=== PATIENT | female | born 1945 | race Caucasian/White ===

== ENCOUNTER 2017-02-02 08:10 | Emergency (ER) | payer MEDICARE ==
[2017-02-02 08:22] VITALS: RESP 16
[2017-02-02] MEDS ORDERED: ACETAMINOPHEN IV (For NPO) 1,000 MG in SALINE 100 100ML.BAG IVPB STA (08:46)
[2017-02-02] MEDS ORDERED: SODIUM CHLORIDE 0.9% 500 ML IV STA (08:46)
--- NOTE | 2017-02-02 08:49 | ED ---
General Adult HPI - General Chief complaint: Abdominal Pain Stated complaint: ABDOMINAL PAIN Time Seen by Provider: 02/02/17 08:38 Source: patient, RN notes reviewed Mode of arrival: ambulatory Limitations: no limitations - History of Present Illness Initial comments: Patient 71-year-old female who presents emergency room today with chief complaint of lower abdominal cramping. She does admit that a urinary tract infection that she was diagnosed with 2 days ago in the family doctor's office. States she began feeling better 2 days ago after starting antibiotics. States that last night she was having some cramping in lower abdomen that she didn't when the symptoms started. Does admit that it feels similar to urinary tract infections that she's had in the past. States she is on antibiotics of Bactrim but did not take it this morning. Patient denies any other complaints or symptoms at this time. Patient denies any recent fever, chills, shortness of breath, chest pain, back pain, nausea or vomiting, numbness or tingling, dysuria or hematuria, constipation or diarrhea, headaches or visual changes, or any other complaints. - Related Data Home Medications Medication Instructions Recorded Confirmed Aspirin EC [Ecotrin Low Dose] 81 mg PO DAILY 02/02/17 02/02/17 Atorvastatin [Lipitor] 80 mg PO HS 02/02/17 02/02/17 Cholecalciferol [Vitamin D3] 1,000 unit PO DAILY 02/02/17 02/02/17 Cyanocobalamin (Vitamin B-12) 1,000 mcg PO DAILY 02/02/17 02/02/17 [Vitamin B-12] FLUoxetine HCL [PROzac] 20 mg PO DAILY 02/02/17 02/02/17 Folic Acid 1 mg PO DAILY 02/02/17 02/02/17 Losartan Potassium [Cozaar] 50 mg PO DAILY 02/02/17 02/02/17 Metoprolol Tartrate [Lopressor] 25 mg PO DAILY 02/02/17 02/02/17 Multivitamins, Thera [Multivitamin] 1 tab PO DAILY 02/02/17 02/02/17 [place]-3 Fatty Acids/Fish Oil [Fish 2 cap PO DAILY 02/02/17 02/02/17 Oil 1,000 mg Softgel] Sulfamethox-Tmp 800-160Mg [Bactrim 1 tab PO Q12HR 02/02/17 02/02/17 DS 800-160 mg] Previous Rx's Medication Instructions Recorded Nitrofurantoin Monohyd/M-Cryst 100 mg PO Q12HR #14 cap 02/02/17 [Macrobid] Allergies Allergy/AdvReac Type Severity Reaction Status Date / Time hydroxychloroquine sulfate AdvReac Itching Verified 02/02/17 08:36 [From Plaquenil] Review of Systems ROS Statement: Those systems with pertinent positive or pertinent negative responses have been documented in the HPI. ROS Other: All systems not noted in ROS Statement are negative. Past Medical History Past Medical History: Hyperlipidemia, Hypertension, Rheumatoid Arthritis (RA) History of Any Multi-Drug Resistant Organisms: None Reported Past Surgical History: Section Additional Past Surgical History / Comment(s): cataract eye surgery Past Psychological History: No Psychological Hx Reported Smoking Status: Never smoker Past Alcohol Use History: None Reported Past Drug Use History: None Reported General Exam - General Exam Comments Initial Comments: General: The patient is awake and alert, in no distress, and does not appear acutely ill. Eye: Pupils are equal, round and reactive to light, extra-ocular movements are intact. No nystagmus. There is normal conjunctiva bilaterally. No signs of icterus. Ears, nose, mouth and throat: There are moist mucous membranes and no oral lesions. Neck: The neck is supple, there is no tenderness or JVD. Cardiovascular: There is a regular rate and rhythm. No murmur, rub or gallop is appreciated. Respiratory: Lungs are clear to auscultation, respirations are non-labored, breath sounds are equal. No wheezes, stridor, rales, or rhonchi. Gastrointestinal: Normal appearance abdomen. Normal bowel sounds. Abdomen soft on palpation. Patient does have tenderness suprapubic over the bladder. No rebound tenderness. No guarding. No CVA tenderness. Musculoskeletal: Normal ROM, no tenderness. Strength 5/5. Sensation intact. Pulses equal bilaterally 2+. Neurological: A&O x 3. CN II-XII intact, There are no obvious motor or sensory deficits. Coordination appears grossly intact. Speech is normal. Skin: Skin is warm and dry and no rashes or lesions are noted. Psychiatric: Cooperative, appropriate mood & affect, normal judgment. Limitations: no limitations Course Vital Signs 02/02/17 08:19 Temperature 96.8 F L Pulse Rate 80 Respiratory 16 Rate Blood Pressure 179/85 O2 Sat by Pulse 97 Oximetry Medical Decision Making - Medical Decision Making Patient reexamined shows no signs of distress. Resting comfortably in the stretcher. Patient labs been reviewed shows no elevated white count. No fever here in emergency room. Denies any fever or chills at home. Patient's urinalysis shows 45 white cells. Has been on Bactrim for 2 days. States that she not feeling any better. Will be given dose or Rocephin here in the emergency room 1 g IV. Patient will also be changed and switched to new antibiotic of Macrobid while culture currently pending. Advised follow-up family doctor have repeat urinalysis return if any symptoms increase or worsen or for any other concerns. - Lab Data Result diagrams: 02/02/17 09:10 02/02/17 09:10 Lab Results 02/02/17 02/02/17 02/02/17 Range/Units 09:10 09:10 09:10 WBC 4.0 (3.8-10.6) k/uL RBC 4.93 (3.80-5.40) m/uL Hgb 14.7 (11.4-16.0) gm/dL Hct 44.2 (34.0-46.0) % MCV 89.7 (80.0-100.0) fL MCH 29.8 (25.0-35.0) pg MCHC 33.2 (31.0-37.0) g/dL RDW 13.0 (11.5-15.5) % Plt Count 171 (150-450) k/uL Neutrophils % 74 % Lymphocytes % 18 % Monocytes % 5 % Eosinophils % 1 % Basophils % 0 % Neutrophils # 3.0 (1.3-7.7) k/uL Lymphocytes # 0.7 L (1.0-4.8) k/uL Monocytes # 0.2 (0-1.0) k/uL Eosinophils # 0.1 (0-0.7) k/uL Basophils # 0.0 (0-0.2) k/uL Sodium 144 (137-145) mmol/L Potassium 4.0 (3.5-5.1) mmol/L Chloride 107 (98-107) mmol/L Carbon Dioxide 24 (22-30) mmol/L Anion Gap 13 mmol/L BUN 10 (7-17) mg/dL Creatinine 1.10 H (0.52-1.04) mg/dL Est GFR (MDRD) Af Amer 60 (>60 ml/min/1.73 sqM) Est GFR (MDRD) Non-Af 49 (>60 ml/min/1.73 sqM) Glucose 111 H (74-99) mg/dL Calcium 9.8 (8.4-10.2) mg/dL Total Bilirubin 0.9 (0.2-1.3) mg/dL AST 25 (14-36) U/L ALT 31 (9-52) U/L Alkaline Phosphatase 82 (38-126) U/L Total Protein 7.5 (6.3-8.2) g/dL Albumin 4.6 (3.5-5.0) g/dL Urine Color Yellow Urine Appearance Cloudy H (Clear) Urine pH 6.0 (5.0-8.0) Ur Specific [place] 1.015 (1.001-1.035) Urine Protein Trace H (Negative) Urine Glucose (UA) Negative (Negative) Urine Ketones Negative (Negative) Urine Blood Negative (Negative) Urine Nitrate Negative (Negative) Urine Bilirubin Negative (Negative) Urine Urobilinogen <2.0 (<2.0) mg/dL Ur Leukocyte Esterase Large H (Negative) Urine WBC 45 H (0-5) /hpf Ur Squamous Epith Cells 2 (0-4) /hpf Urine Bacteria Rare H (None) /hpf Urine Mucus Rare H (None) /hpf Disposition Clinical Impression: UTI (urinary tract infection) Disposition: HOME SELF-CARE Condition: Good Instructions: Urinary Tract Infection in Women (ED) Additional Instructions: Please use medication as discussed. Please follow-up with family doctor in the next 2 days of symptoms have not improved. Please return to emergency room if the symptoms increase or worsen or for any other concerns. Prescriptions: Nitrofurantoin Monohyd/M-Cryst [Macrobid] 100 mg PO Q12HR #14 cap Time of Disposition: 10:14
[2017-02-02 09:29] LABS: Basophils % (A) 0 %; CH 31.3; Eosinophils # (A) 0.1 k/uL (0-0.7); Eosinophils % (A) 1 %; HCT 44.2 % (34.0-46.0); HDW 2.95; HGB 14.7 gm/dL (11.4-16.0); Luc # (Auto) 0.07; Luc % (Auto) 2; Lymphocytes # (A) 0.7 k/uL (1.0-4.8); Lymphocytes % (A) 18 %; MCH 29.8 pg (25.0-35.0); MCHC 33.2 g/dL (31.0-37.0); MCV 89.7 fL (80.0-100.0); Mean Platelet Volume 6.2; Monocytes # (A) 0.2 k/uL (0-1.0); Monocytes % (A) 5 %; Neutrophils % (A) 74 %; RBC 4.93 m/uL (3.80-5.40)
[2017-02-02 09:35] LABS: Calcium 9.8 mg/dL (8.4-10.2); Total Bilirubin 0.9 mg/dL (0.2-1.3); Total Protein 7.5 g/dL (6.3-8.2)
--- NOTE | 2017-02-02 09:39 | XR ---
EXAMINATION TYPE: XR KUB DATE OF EXAM: 02/02/2017 9:29 AM COMPARISON: NONE HISTORY: Pain TECHNIQUE: Single supine KUB image of the abdomen is obtained FINDINGS: Small bowel demonstrates no evidence for dilatation or air fluid levels. Gas and fecal material is seen in non-distended colon. No convincing evidence for pneumoperitoneum. Large calcification right upper quadrant likely reflects a gallstone. The lung bases are clear. The osseous structures are intact. IMPRESSION: 1. Overall nonobstructive bowel gas pattern. Probable gallstone.
[2017-02-02 09:52] LABS: Appearance,Urine Cloudy (Clear); Bacteria,Urine Rare /hpf; Bilirubin,Urine Negative (Negative); Glucose,Urine (UA) Negative (Negative); Ketones,Urine Negative (Negative); Leukocyte Esterase,Urine Large (Negative); Mucus,Urine Rare /hpf; Nitrite,Urine Negative (Negative); Particle Count 11816; Protein,Urine Trace (Negative); Specific Gravity,Urine 1.015 (1.001-1.035); Squamous Epithelial Cell,Urine 2 /hpf (0-4); UA Billing (MACRO vs. MICRO) MICRO; Urobilinogen,Urine <2.0 mg/dL (<2.0); WBC,Urine 45 /hpf (0-5)
[2017-02-02 10:23] VITALS: BP 149/77; PULSE 75; TEMP 98.1
== END 2017-02-02 10:54 | disposition home or self-care (01) ==
LOC: EC 08:10
DX: N39.0 Urinary tract infection, site not specified (principal); E78.5 Hyperlipidemia, unspecified; I10 Essential (primary) hypertension; M06.9 Rheumatoid arthritis, unspecified; Z79.82 Long term (current) use of aspirin; Z79.899 Other long term (current) drug therapy; Z88.8 Allergy status to other drugs, medicaments and biological substances
CPT/HCPCS: 99284 ×2; 96365 ×2; 96375 ×2; 36415; 80053; 85025; 81001; 87086; 74000; J0696; J0131

== ENCOUNTER → 2017-04-22 | Outpatient (CLI) | payer MEDICARE ==
--- NOTE | 2017-04-23 07:04 | XR ---
EXAMINATION TYPE: XR hand complete RT DATE OF EXAM ORDERED: 04/22/2017 HISTORY: [id number] rt hand/finger injury. COMPARISON: None. FINDINGS: There is an unusual lucency traversing the length of the proximal phalanx of the right fif th digit. I could not exclude an undisplaced fracture. There is extreme degenerative change with hypertrophic change and joint space loss in the PIP and DIP joints of the first and second digits and to a lesser extent all of the fingers. There is moderately severe degenerative change in the first carpal metacarpal joint. 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 T here is loss of the radiocarpal joint. IMPRESSION: 1. I CANNOT EXCLUDE NONDISPLACED FRACTURE THE PROXIMAL PHALANX THE RIGHT FIFTH DIGIT. 2. EXTENSIVE DEGENERATIVE CHANGE.
== END | disposition home or self-care (01) ==
LOC: RADXRYALE 08:54
PROVIDERS: ATTEND Physician Assistant Medical
DX: M25.841 Other specified joint disorders, right hand (principal); S69.91XA Unspecified injury of right wrist, hand and finger(s), initial encounter

== ENCOUNTER → 2017-05-04 | Outpatient (CLI) | payer MEDICARE ==
--- NOTE | 2017-05-06 08:34 | XR ---
EXAMINATION TYPE: XR finger RT DATE OF EXAM: 05/04/2017 COMPARISON: NONE HISTORY: Follow-up fracture TECHNIQUE: 2 views submitted FINDINGS: Persistent multiple lucencies through the proximal phalanx fifth digit suspicious for fract ure. No significant displacement noted. No significant callus formation. Arthropathy of the MCP, PIP and DIP joints is stable. IMPRESSION: 1. Stable appearing fracture proximal phalanx fifth digit
== END | disposition home or self-care (01) ==
LOC: RADXRYALE 10:03
PROVIDERS: ATTEND Physician Assistant Medical
DX: S62.616A Displaced fracture of proximal phalanx of right little finger, initial encounter for closed fracture (principal)

== ENCOUNTER → 2017-06-29 | Outpatient (CLI) | payer MEDICARE ==
--- NOTE | 2017-06-30 11:43 | MM ---
Reason for exam: screening (asymptomatic). Last mammogram was performed 1 year ago. History: Patient is postmenopausal. Family history of breast cancer in maternal cousin. Took estrogen for 4 years beginning at age 51. Physical Findings: A clinical breast exam by your physician is recommended on an annual basis and results should be correlated with mammographic findings. MG Screening Mammo w CAD Bilateral CC and MLO view(s) were taken. Prior study comparison: June 27, 2016, bilateral MG screening mammo w CAD. June 26, 2015, bilateral MG screening mammo w CAD. The breast tissue is heterogeneously dense. This may lower the sensitivity of mammography. Benign calcifications bilaterally. There is chronic nodularity in the left breast, stable. No significant changes when compared with prior studies. ASSESSMENT: Benign, BI-RAD 2 RECOMMENDATION: Routine screening mammogram of both breasts in 1 year.
== END | disposition home or self-care (01) ==
LOC: RADMAMWWP 09:38
PROVIDERS: ATTEND Family Medicine
DX: Z12.31 Encounter for screening mammogram for malignant neoplasm of breast (principal)

== ENCOUNTER → 2018-07-05 | Outpatient (CLI) | payer MEDICARE ==
--- NOTE | 2018-07-12 12:03 | MM ---
Reason for exam: screening (asymptomatic). Last mammogram was performed 1 year ago. History: Patient is postmenopausal. Family history of breast cancer in maternal cousin. Took estrogen for 4 years beginning at age 51. Physical Findings: A clinical breast exam by your physician is recommended on an annual basis and results should be correlated with mammographic findings. MG Screening Mammo w CAD Bilateral CC and MLO view(s) were taken. Prior study comparison: June 29, 2017, bilateral MG screening mammo w CAD. June 27, 2016, bilateral MG screening mammo w CAD. The breast tissue is heterogeneously dense. This may lower the sensitivity of mammography. There is no discrete abnormality. No significant changes when compared with prior studies. ASSESSMENT: Negative, BI-RAD 1 RECOMMENDATION: Routine screening mammogram of both breasts in 1 year.
== END | disposition home or self-care (01) ==
LOC: RADMAMWWP 13:19
PROVIDERS: ATTEND Family Medicine
DX: Z12.31 Encounter for screening mammogram for malignant neoplasm of breast (principal)
CPT/HCPCS: 77067

== ENCOUNTER → 2019-07-08 | Outpatient (CLI) | payer MEDICARE ==
--- NOTE | 2019-07-12 09:04 | MM ---
Reason for exam: screening (asymptomatic). Last mammogram was performed 1 year ago. History: Patient is postmenopausal. Family history of breast cancer in maternal cousin at age 50. Took estrogen for 4 years beginning at age 51. Physical Findings: A clinical breast exam by your physician is recommended on an annual basis and results should be correlated with mammographic findings. MG Screening Mammo w CAD Bilateral CC and MLO view(s) were taken. Prior study comparison: July 05, 2018, bilateral MG screening mammo w CAD. June 29, 2017, bilateral MG screening mammo w CAD. The breast tissue is heterogeneously dense. This may lower the sensitivity of mammography. No significant changes when compared with prior studies. ASSESSMENT: Benign, BI-RAD 2 RECOMMENDATION: Routine screening mammogram of both breasts in 1 year.
== END ==
LOC: RADMAMWWP 10:12
PROVIDERS: ATTEND Family Medicine
DX: Z12.31 Encounter for screening mammogram for malignant neoplasm of breast (principal)
CPT/HCPCS: 77067

== ENCOUNTER → 2019-12-30 | Outpatient (CLI) | payer MEDICARE ==
[~2019-12-30] MED LIST: IODINE/POTASS IOD (LUGOLS) BOTTLE TOPICAL ONE
--- NOTE | 2019-12-30 15:27 | NM ---
EXAMINATION TYPE: NM DatScan Brain SPECT DATE OF EXAM: 12/30/2019 COMPARISON: NONE HISTORY: Trauma TECHNIQUE: 10 drops of Lugol's solution was administered 1 hour prior to injection as a thyroid bloc yaz agent. After the administration of 4.23 mCi I-123 Ioflupane DaTscan. Images obtained 3 hours p ost injection. SPECT images of the brain were acquired with axial and coronal reconstructions. FINDINGS: The axial SPECT images demonstrate increased background activity and reduced activity withi n the bilateral striata. IMPRESSION: Abnormal appearance highly suggestive of idiopathic Parkinson's disease or Parkinsonian s yndrome.
== END | disposition home or self-care (01) ==
LOC: RADNMMAIN 10:19
PROVIDERS: ATTEND Psychiatry & Neurology Neurology
DX: R25.1 Tremor, unspecified (principal)
CPT/HCPCS: 78803; A9584

== ENCOUNTER 2020-02-17 02:32 | Emergency (ER) | payer MEDICARE ==
[2020-02-17 02:41] VITALS: TEMP 97.8
[2020-02-17] MEDS ORDERED: ONDANSETRON 4 MG/2 ML VIAL IVP STA (02:53)
[2020-02-17] MEDS ORDERED: MORPHINE SULFATE 2 MG/ML SYRINGE IVP STA ×2 (02:53→03:39)
[2020-02-17] MEDS ORDERED: SODIUM CHLORIDE 0.9% 1,000 ML IV STA (02:53)
--- NOTE | 2020-02-17 02:59 | ED ---
Abdominal Pain HPI - General Source: patient, family Mode of arrival: ambulatory Limitations: no limitations <Romina Glasgow - Last Filed: 02/17/20 04:00> <Navi Anthony - Last Filed: 02/17/20 05:07> - General Chief Complaint: Abdominal Pain Stated Complaint: Chest pain Time Seen by Provider: 02/17/20 02:45 - History of Present Illness Initial Comments: 74-year-old female patient presents to the emergency department today for evaluation of right upper quadrant abdominal pain. Patient states the pain has been present since around 9 PM. Describes the pain is sharp and stabbing. States it does radiate through to her back. Denies any shoulder pain. Denies any chest pain, shortness of breath, nausea, or vomiting. States that she has had some constipation, last bowel movement was this morning. Denies any diarrhea. Denies hematochezia, melena, hematemesis. Patient has had 2 sections in the past but denies any other abdominal surgeries. Denies any history of heart disease. Denies alcohol or drug use. Patient denies any recent rash, cough, numbness, tingling, dizziness, weakness, hematuria, dysuria, urinary urgency, urinary frequency, headache, visual changes, or any other complaints. (Romina Glasgow) - Related Data Home Medications Medication Instructions Recorded Confirmed Aspirin EC [Ecotrin Low Dose] 81 mg PO DAILY 02/02/17 02/02/17 Atorvastatin [Lipitor] 80 mg PO HS 02/02/17 02/02/17 Cholecalciferol [Vitamin D3] 1,000 unit PO DAILY 02/02/17 02/02/17 Cyanocobalamin (Vitamin B-12) 1,000 mcg PO DAILY 02/02/17 02/02/17 [Vitamin B-12] FLUoxetine HCL [PROzac] 20 mg PO DAILY 02/02/17 02/02/17 Folic Acid 1 mg PO DAILY 02/02/17 02/02/17 Losartan Potassium [Cozaar] 50 mg PO DAILY 02/02/17 02/02/17 Metoprolol Tartrate [Lopressor] 25 mg PO DAILY 02/02/17 02/02/17 Multivitamins, Thera [Multivitamin] 1 tab PO DAILY 02/02/17 02/02/17 [place]-3 Fatty Acids/Fish Oil [Fish 2 cap PO DAILY 02/02/17 02/02/17 Oil 1,000 mg Softgel] Sulfamethox-Tmp 800-160Mg [Bactrim 1 tab PO Q12HR 02/02/17 02/02/17 DS 800-160 mg] Previous Rx's Medication Instructions Recorded Nitrofurantoin Monohyd/M-Cryst 100 mg PO Q12HR #14 cap 02/02/17 [Macrobid] Acetaminophen-Codeine 300-30mg 1 tab PO Q4H PRN #15 tablet 02/17/20 [Tylenol w/codeine #3] Promethazine [Phenergan] 25 mg PO Q6HR PRN #12 tablet 02/17/20 Allergies Allergy/AdvReac Type Severity Reaction Status Date / Time hydroxychloroquine sulfate AdvReac Itching Verified 02/02/17 08:36 [From Plaquenil] Review of Systems ROS Other: All systems not noted in ROS Statement are negative. <Romina Glasgow - Last Filed: 02/17/20 04:00> ROS Other: All systems not noted in ROS Statement are negative. <Navi Anthony - Last Filed: 02/17/20 05:07> ROS Statement: Those systems with pertinent positive or pertinent negative responses have been documented in the HPI. Past Medical History Past Medical History: Hyperlipidemia, Hypertension, Rheumatoid Arthritis (RA) Additional Past Medical History / Comment(s): Parkinsons History of Any Multi-Drug Resistant Organisms: None Reported Past Surgical History: Section Additional Past Surgical History / Comment(s): cataract eye surgery Past Psychological History: No Psychological Hx Reported Smoking Status: Never smoker Past Alcohol Use History: None Reported Past Drug Use History: None Reported <Romina Glasgow - Last Filed: 02/17/20 04:00> General Exam Limitations: no limitations General appearance: alert, in no apparent distress, other (This is a well- developed, well-nourished adult female patient in no acute distress. Vital signs upon presentation are temperature 97.8F, pulse 66, respirations 18, blood pressure 200/93, pulse ox 96% on room air.) Eye exam: Present: normal appearance, PERRL, EOMI. Absent: scleral icterus, conjunctival injection, periorbital swelling ENT exam: Present: normal exam, normal oropharynx, mucous membranes moist Respiratory exam: Present: normal lung sounds bilaterally. Absent: respiratory distress, wheezes, rales, rhonchi, stridor Cardiovascular Exam: Present: regular rate, normal rhythm, normal heart sounds. Absent: systolic murmur, diastolic murmur, rubs, gallop, clicks GI/Abdominal exam: Present: soft, tenderness (Right upper quadrant), normal bowel sounds, other (Negative Marr sign). Absent: distended, guarding, rebound, rigid Back exam: Present: normal inspection. Absent: CVA tenderness (R), CVA tenderness (L) Neurological exam: Present: alert, oriented X3, CN II-XII intact Psychiatric exam: Present: normal affect, normal mood Skin exam: Present: warm, dry, intact, normal color. Absent: rash <Romina Glasgow - Last Filed: 02/17/20 04:00> Course <Romina Glasgow - Last Filed: 02/17/20 04:00> Vital Signs 02/17/20 02/17/20 02/17/20 02:37 03:30 04:00 Temperature 97.8 F Pulse Rate 66 77 Respiratory 18 15 Rate Blood Pressure 200/93 190/99 193/91 O2 Sat by Pulse 96 97 97 Oximetry - Reevaluation(s) Reevaluation #1: 02/17/20 04:01 Patient presented for right upper quadrant abdominal pain. Abdomen was tender over the right upper quadrant. Labs unremarkable. CT abdomen and pelvis is pending. Dr. Anthony is taking over care of patient until disposition. (Romina Glasgow) Medical Decision Making - Lab Data Result diagrams: 02/17/20 02:59 02/17/20 02:59 - EKG Data -: EKG Interpreted by Me <Romina Glasgow - Last Filed: 02/17/20 04:00> - Lab Data Result diagrams: 02/17/20 02:59 02/17/20 02:59 <Navi Anthony - Last Filed: 02/17/20 05:07> - Medical Decision Making I saw this patient in conjunction with the physician pharmacy technician assistant. I performed independent history and physical exam. Agree with case management. Patient is feeling better following medication. I discussed admission but the patient is feeling well and would like to go home. We discussed appropriate further care and follow-up as well as return parameters. (Navi Anthony) - Lab Data Lab Results 02/17/20 02/17/20 02/17/20 Range/Units 02:59 02:59 02:59 WBC 5.0 (3.8-10.6) k/uL RBC 4.74 (3.80-5.40) m/uL Hgb 14.5 (11.4-16.0) gm/dL Hct 42.6 (34.0-46.0) % MCV 89.8 (80.0-100.0) fL MCH 30.5 (25.0-35.0) pg MCHC 34.0 (31.0-37.0) g/dL RDW 12.6 (11.5-15.5) % Plt Count 159 (150-450) k/uL Neutrophils % 68 % Lymphocytes % 21 % Monocytes % 6 % Eosinophils % 3 % Basophils % 0 % Neutrophils # 3.4 (1.3-7.7) k/uL Lymphocytes # 1.0 (1.0-4.8) k/uL Monocytes # 0.3 (0-1.0) k/uL Eosinophils # 0.1 (0-0.7) k/uL Basophils # 0.0 (0-0.2) k/uL Sodium 138 (137-145) mmol/L Potassium 3.9 (3.5-5.1) mmol/L Chloride 105 (98-107) mmol/L Carbon Dioxide 26 (22-30) mmol/L Anion Gap 7 mmol/L BUN 12 (7-17) mg/dL Creatinine 0.70 (0.52-1.04) mg/dL Est GFR (CKD-EPI)AfAm >90 (>60 ml/min/1.73 sqM) Est GFR (CKD-EPI)NonAf 86 (>60 ml/min/1.73 sqM) Glucose 141 H (74-99) mg/dL Calcium 10.2 (8.4-10.2) mg/dL Total Bilirubin 0.5 (0.2-1.3) mg/dL AST 28 (14-36) U/L ALT 21 (4-34) U/L Alkaline Phosphatase 84 (38-126) U/L Troponin I <0.012 (0.000-0.034) ng/mL Total Protein 7.1 (6.3-8.2) g/dL Albumin 4.5 (3.5-5.0) g/dL Amylase 65 (30-110) U/L Lipase 236 (23-300) U/L Urine Color Urine Appearance (Clear) Urine pH (5.0-8.0) Ur Specific [place] (1.001-1.035) Urine Protein (Negative) Urine Glucose (UA) (Negative) Urine Ketones (Negative) Urine Blood (Negative) Urine Nitrite (Negative) Urine Bilirubin (Negative) Urine Urobilinogen (<2.0) mg/dL Ur Leukocyte Esterase (Negative) 02/17/20 Range/Units 03:30 WBC (3.8-10.6) k/uL RBC (3.80-5.40) m/uL Hgb (11.4-16.0) gm/dL Hct (34.0-46.0) % MCV (80.0-100.0) fL MCH (25.0-35.0) pg MCHC (31.0-37.0) g/dL RDW (11.5-15.5) % Plt Count (150-450) k/uL Neutrophils % % Lymphocytes % % Monocytes % % Eosinophils % % Basophils % % Neutrophils # (1.3-7.7) k/uL Lymphocytes # (1.0-4.8) k/uL Monocytes # (0-1.0) k/uL Eosinophils # (0-0.7) k/uL Basophils # (0-0.2) k/uL Sodium (137-145) mmol/L Potassium (3.5-5.1) mmol/L Chloride (98-107) mmol/L Carbon Dioxide (22-30) mmol/L Anion Gap mmol/L BUN (7-17) mg/dL Creatinine (0.52-1.04) mg/dL Est GFR (CKD-EPI)AfAm (>60 ml/min/1.73 sqM) Est GFR (CKD-EPI)NonAf (>60 ml/min/1.73 sqM) Glucose (74-99) mg/dL Calcium (8.4-10.2) mg/dL Total Bilirubin (0.2-1.3) mg/dL AST (14-36) U/L ALT (4-34) U/L Alkaline Phosphatase (38-126) U/L Troponin I (0.000-0.034) ng/mL Total Protein (6.3-8.2) g/dL Albumin (3.5-5.0) g/dL Amylase (30-110) U/L Lipase (23-300) U/L Urine Color Light Yellow Urine Appearance Clear (Clear) Urine pH 7.0 (5.0-8.0) Ur Specific [place] 1.015 (1.001-1.035) Urine Protein Negative (Negative) Urine Glucose (UA) Negative (Negative) Urine Ketones Negative (Negative) Urine Blood Negative (Negative) Urine Nitrite Negative (Negative) Urine Bilirubin Negative (Negative) Urine Urobilinogen <2.0 (<2.0) mg/dL Ur Leukocyte Esterase Negative (Negative) - EKG Data EKG Comments: EKG obtained at 02 49 shows normal sinus rhythm with some inverted T waves. Ventricular rate is 64, WI interval 198, QRS duration 92, QT 434, QTC 447. No evidence of ST elevation or depression. (Romina Glasgow) Disposition <Romina Glasgow - Last Filed: 02/17/20 04:00> Is patient prescribed a controlled substance at d/c from ED?: No <Navi Anthony - Last Filed: 02/17/20 05:07> Clinical Impression: Abdominal pain, Biliary colic Disposition: HOME SELF-CARE Condition: Good Instructions (If sedation given, give patient instructions): Biliary Colic (ED) Prescriptions: Promethazine [Phenergan] 25 mg PO Q6HR PRN #12 tablet PRN Reason: Vomiting Acetaminophen-Codeine 300-30mg [Tylenol w/codeine #3] 1 tab PO Q4H PRN #15 tablet PRN Reason: pain Referrals: Lonnie Rehman DO [Primary Care Provider] - 1-2 days
[2020-02-17 03:13] LABS: Basophils % (A) 0 %; Eosinophils # (A) 0.1 k/uL (0-0.7); Eosinophils % (A) 3 %; HCT 42.6 % (34.0-46.0); HGB 14.5 gm/dL (11.4-16.0); Lymphocytes % (A) 21 %; MCH 30.5 pg (25.0-35.0); MCV 89.8 fL (80.0-100.0); Mean Platelet Volume 6.8; Monocytes # (A) 0.3 k/uL (0-1.0); Monocytes % (A) 6 %; Neutrophils # (A) 3.4 k/uL (1.3-7.7); Neutrophils % (A) 68 %; Platelet Count 159 k/uL (150-450); RBC 4.74 m/uL (3.80-5.40); RDW 12.6 % (11.5-15.5)
[2020-02-17 03:23] LABS: ALT 21 U/L (4-34); AST 28 U/L (14-36); African American GFR (CKD) >90 (>60 ml/min/1.73 sqM); Albumin 4.5 g/dL (3.5-5.0); Alkaline Phosphatase 84 U/L (38-126); Amylase 65 U/L (30-110); Anion Gap 7 mmol/L; Blood Urea Nitrogen 12 mg/dL (7-17); Calcium 10.2 mg/dL (8.4-10.2); Carbon Dioxide 26 mmol/L (22-30); Chloride 105 mmol/L (98-107); Glucose 141 mg/dL (74-99); Non-African American GFR(CKD) 86 (>60 ml/min/1.73 sqM); Potassium 3.9 mmol/L (3.5-5.1); Sodium 138 mmol/L (137-145); Total Bilirubin 0.5 mg/dL (0.2-1.3); Total Protein 7.1 g/dL (6.3-8.2)
[2020-02-17 03:35] LABS: Appearance,Urine Clear (Clear); Bilirubin,Urine Negative (Negative); Blood,Urine Negative (Negative); Color,Urine Light Yellow; Glucose,Urine (UA) Negative (Negative); Ketones,Urine Negative (Negative); Leukocyte Esterase,Urine Negative (Negative); Nitrite,Urine Negative (Negative); Protein,Urine Negative (Negative); Specific Gravity,Urine 1.015 (1.001-1.035); Urobilinogen,Urine <2.0 mg/dL (<2.0)
--- NOTE | 2020-02-17 04:05 | CT ---
EXAMINATION TYPE: CT abdomen pelvis w con DATE OF EXAM: 02/17/2020 COMPARISON: None HISTORY: RUQ pain CT DLP: 1068.8 mGycm Automated exposure control for dose reduction was used. CONTRAST: Performed with IV Contrast, patient injected with 100 mL of Isovue 300. There is some atelectasis at the lung bases. There is no pleural effusion. There is mild hiatal herni a. Heart size is fairly normal. There is no pericardial effusion. Liver and spleen appear intact. Bile ducts are not dilated. There is 1.5 cm low-density focus in the body of the pancreas. This has fluid density and could BE a pseudocyst. There is 2 cm single gallston e at the gallbladder neck. Gallbladder is not dilated. Intrahepatic bile ducts are not dilated. There is no adrenal mass. Kidneys show satisfactory contrast opacification. There is no hydronephrosi s. Ureters are not dilated. Bladder distends smoothly. There is no inguinal hernia. There is no free fluid in the pelvis. There is no evidence of a pelvic mass. Uterus is retroverted. The lumbar spine i s intact. Bony pelvis is intact. There is no mesenteric edema. There is no ascites or free air. There is no evidence of a bowel obstru ction. The appendix appears normal. IMPRESSION: Large calcified gallstone at the gallbladder neck. No dilated ducts. Fluid density mass in the body of the pancreas is nonspecific. This could BE a pseudocyst. Normal appendix.
[2020-02-17] MEDS ORDERED: FAMOTIDINE 20 MG/2 ML VIAL IV STA (04:13)
[2020-02-17] MEDS ORDERED: HYDROmorphone 0.5 MG/0.5 ML SYRINGE IVP STA (04:13)
[2020-02-17 04:19] VITALS: RESP 15
[2020-02-17 05:12] VITALS: BP 164/96; PULSE 81
== END 2020-02-17 05:12 | disposition home or self-care (01) ==
LOC: EC 02:32
DX: K80.50 Calculus of bile duct without cholangitis or cholecystitis without obstruction (principal); E78.5 Hyperlipidemia, unspecified; I10 Essential (primary) hypertension; M06.9 Rheumatoid arthritis, unspecified; G20 Parkinson's disease; Z88.8 Allergy status to other drugs, medicaments and biological substances; Z79.82 Long term (current) use of aspirin; Z79.899 Other long term (current) drug therapy
CPT/HCPCS: 99284; 96374; 96375 ×3; 96376; 96361; 36415; 80053; 82150; 83690; 84484; 85025; 81003; 74177; J2405; J2270; J1170; Q9967

== ENCOUNTER 2020-07-26 09:51 | Emergency (ER) | payer MEDICARE ==
[2020-07-26] MEDS ORDERED: SODIUM CHLORIDE 0.9% 1,000 ML IV STA (10:27)
[2020-07-26 10:35] VITALS: RESP 16
--- NOTE | 2020-07-26 10:38 | ED ---
Weakness HPI - General Chief complaint: Weakness Stated complaint: Weakness Time Seen by Provider: 07/26/20 10:00 Source: patient, family, RN notes reviewed Mode of arrival: ambulatory Limitations: no limitations - History of Present Illness Initial comments: This is a 74-year-old female who presents with complaints of feeling tired and weak also lightheaded. This been going on for past 2 weeks. Increased yesterday. She states she's had rhinorrhea for many weeks no cough apparently she recently had a episode of bile duct obstruction which spontaneously resolved she states she feels tired all time caking motivated. She denies any fevers chills sweats no earache sore throat no cough or phlegm production no dysuria no hematuria no chest or abdominal pain. No focal weakness. No other complaints or modifying factors MD Complaint: generalized weakness - Related Data Home Medications Medication Instructions Recorded Confirmed Atorvastatin [Lipitor] 80 mg PO DAILY 02/02/17 07/26/20 Cholecalciferol [Vitamin D3] 1,000 unit PO DAILY 02/02/17 07/26/20 Cyanocobalamin (Vitamin B-12) 1,000 mcg PO DAILY 02/02/17 07/26/20 [Vitamin B-12] Folic Acid 1 mg PO DAILY 02/02/17 07/26/20 Losartan Potassium [Cozaar] 25 mg PO DAILY 02/02/17 07/26/20 [place]-3 Fatty Acids/Fish Oil [Fish 2 cap PO DAILY 02/02/17 07/26/20 Oil 1,000 mg Softgel] Donepezil [Aricept] 5 mg PO DAILY 07/26/20 07/26/20 Flecainide [Tambocor] 50 mg PO Q12HR 07/26/20 07/26/20 Metoprolol Succinate (ER) [Toprol 25 mg PO DAILY 07/26/20 07/26/20 Xl] rOPINIRole HCL [Requip] 2 mg PO HS 07/26/20 07/26/20 Allergies Allergy/AdvReac Type Severity Reaction Status Date / Time hydroxychloroquine sulfate AdvReac Itching Verified 07/26/20 11:57 [From Plaquenil] Review of Systems ROS Statement: Those systems with pertinent positive or pertinent negative responses have been documented in the HPI. ROS Other: All systems not noted in ROS Statement are negative. Past Medical History Past Medical History: Hyperlipidemia, Hypertension, Rheumatoid Arthritis (RA) Additional Past Medical History / Comment(s): Parkinsons History of Any Multi-Drug Resistant Organisms: None Reported Past Surgical History: Section Additional Past Surgical History / Comment(s): cataract eye surgery Past Psychological History: No Psychological Hx Reported Smoking Status: Never smoker Past Alcohol Use History: None Reported Past Drug Use History: None Reported General Exam - General Exam Comments Initial Comments: This is a well-developed well-nourished awake alert oriented 3 female Limitations: no limitations General appearance: alert, in no apparent distress Head exam: Present: atraumatic, normocephalic, normal inspection Eye exam: Present: normal appearance, PERRL, EOMI. Absent: scleral icterus, conjunctival injection, periorbital swelling ENT exam: Present: mucous membranes dry, other (Boggy nasal mucosa) Neck exam: Present: normal inspection, full ROM, other (No stridor JVD or bruits). Absent: tenderness, meningismus, lymphadenopathy Respiratory exam: Present: normal lung sounds bilaterally. Absent: respiratory distress, wheezes, rales, rhonchi, stridor Cardiovascular Exam: Present: regular rate, normal rhythm, normal heart sounds. Absent: systolic murmur, diastolic murmur, rubs, gallop, clicks GI/Abdominal exam: Present: soft, normal bowel sounds. Absent: distended, tenderness, guarding, rebound, rigid Extremities exam: Present: normal inspection, full ROM, normal capillary refill. Absent: tenderness, pedal edema, joint swelling, calf tenderness Back exam: Present: normal inspection Neurological exam: Present: alert, oriented X3, CN II-XII intact Psychiatric exam: Present: normal affect, normal mood Skin exam: Present: warm, dry, intact, normal color. Absent: rash Course Vital Signs 07/26/20 07/26/20 09:53 10:33 Temperature 97.7 F 98.1 F Pulse Rate 62 60 Respiratory 18 16 Rate Blood Pressure 158/82 137/81 O2 Sat by Pulse 100 95 Oximetry Medical Decision Making - Medical Decision Making I did discuss findings with patient and her family was present the workup thus far is negative patient will be following up with her doctor. Nothing to explain the weakness as he does admit that she is to watch a lot of new slightly and that does get her down. Additionally the patient does have Parkinson's disease and she's been researching this more. - Lab Data Result diagrams: 07/26/20 10:55 07/26/20 10:55 Lab Results 07/26/20 07/26/20 07/26/20 Range/Units 10:55 10:55 10:55 WBC 3.8 (3.8-10.6) k/uL RBC 4.74 (3.80-5.40) m/uL Hgb 14.2 (11.4-16.0) gm/dL Hct 42.4 (34.0-46.0) % MCV 89.5 (80.0-100.0) fL MCH 30.0 (25.0-35.0) pg MCHC 33.5 (31.0-37.0) g/dL RDW 12.6 (11.5-15.5) % Plt Count 149 L (150-450) k/uL Neutrophils % 60 % Lymphocytes % 28 % Monocytes % 8 % Eosinophils % 3 % Basophils % 0 % Neutrophils # 2.2 (1.3-7.7) k/uL Lymphocytes # 1.1 (1.0-4.8) k/uL Monocytes # 0.3 (0-1.0) k/uL Eosinophils # 0.1 (0-0.7) k/uL Basophils # 0.0 (0-0.2) k/uL PT 11.5 (9.0-12.0) sec INR 1.1 (<1.2) APTT 26.0 (22.0-30.0) sec D-Dimer <0.17 (<0.60) mg/L FEU Sodium (137-145) mmol/L Potassium (3.5-5.1) mmol/L Chloride (98-107) mmol/L Carbon Dioxide (22-30) mmol/L Anion Gap mmol/L BUN (7-17) mg/dL Creatinine (0.52-1.04) mg/dL Est GFR (CKD-EPI)AfAm (>60 ml/min/1.73 sqM) Est GFR (CKD-EPI)NonAf (>60 ml/min/1.73 sqM) Glucose (74-99) mg/dL Plasma Lactic Acid Jason (0.7-2.0) mmol/L Calcium (8.4-10.2) mg/dL Magnesium (1.6-2.3) mg/dL Total Bilirubin (0.2-1.3) mg/dL AST (14-36) U/L ALT (4-34) U/L Alkaline Phosphatase (38-126) U/L Creatine Kinase (30-135) U/L Troponin I (0.000-0.034) ng/mL Total Protein (6.3-8.2) g/dL Albumin (3.5-5.0) g/dL TSH (0.465-4.680) mIU/L Urine Color Light Yellow Urine Appearance Clear (Clear) Urine pH 7.5 (5.0-8.0) Ur Specific [place] 1.003 (1.001-1.035) Urine Protein Negative (Negative) Urine Glucose (UA) Negative (Negative) Urine Ketones Negative (Negative) Urine Blood Negative (Negative) Urine Nitrite Negative (Negative) Urine Bilirubin Negative (Negative) Urine Urobilinogen <2.0 (<2.0) mg/dL Ur Leukocyte Esterase Negative (Negative) 07/26/20 07/26/20 07/26/20 Range/Units 10:55 10:55 10:55 WBC (3.8-10.6) k/uL RBC (3.80-5.40) m/uL Hgb (11.4-16.0) gm/dL Hct (34.0-46.0) % MCV (80.0-100.0) fL MCH (25.0-35.0) pg MCHC (31.0-37.0) g/dL RDW (11.5-15.5) % Plt Count (150-450) k/uL Neutrophils % % Lymphocytes % % Monocytes % % Eosinophils % % Basophils % % Neutrophils # (1.3-7.7) k/uL Lymphocytes # (1.0-4.8) k/uL Monocytes # (0-1.0) k/uL Eosinophils # (0-0.7) k/uL Basophils # (0-0.2) k/uL PT (9.0-12.0) sec INR (<1.2) APTT (22.0-30.0) sec D-Dimer (<0.60) mg/L FEU Sodium 140 (137-145) mmol/L Potassium 4.0 (3.5-5.1) mmol/L Chloride 107 (98-107) mmol/L Carbon Dioxide 28 (22-30) mmol/L Anion Gap 5 mmol/L BUN 10 (7-17) mg/dL Creatinine 0.76 (0.52-1.04) mg/dL Est GFR (CKD-EPI)AfAm >90 (>60 ml/min/1.73 sqM) Est GFR (CKD-EPI)NonAf 79 (>60 ml/min/1.73 sqM) Glucose 99 (74-99) mg/dL Plasma Lactic Acid Jason 1.0 (0.7-2.0) mmol/L Calcium 9.7 (8.4-10.2) mg/dL Magnesium 2.2 (1.6-2.3) mg/dL Total Bilirubin 1.3 (0.2-1.3) mg/dL AST 27 (14-36) U/L ALT 19 (4-34) U/L Alkaline Phosphatase 79 (38-126) U/L Creatine Kinase 97 (30-135) U/L Troponin I <0.012 (0.000-0.034) ng/mL Total Protein 6.7 (6.3-8.2) g/dL Albumin 4.4 (3.5-5.0) g/dL TSH 1.770 (0.465-4.680) mIU/L Urine Color Urine Appearance (Clear) Urine pH (5.0-8.0) Ur Specific [place] (1.001-1.035) Urine Protein (Negative) Urine Glucose (UA) (Negative) Urine Ketones (Negative) Urine Blood (Negative) Urine Nitrite (Negative) Urine Bilirubin (Negative) Urine Urobilinogen (<2.0) mg/dL Ur Leukocyte Esterase (Negative) - Radiology Data Radiology results: report reviewed (I did review the imaging and report no acute findings), image reviewed Disposition Clinical Impression: Weakness, Feared condition not demonstrated, Parkinsons disease Disposition: HOME SELF-CARE Condition: Good Instructions (If sedation given, give patient instructions): Parkinson Disease (ED) Is patient prescribed a controlled substance at d/c from ED?: No Referrals: Lonnie Rehman DO [Primary Care Provider] - 1-2 days
[2020-07-26 11:08] LABS: Basophils % (A) 0 %; Eosinophils # (A) 0.1 k/uL (0-0.7); Eosinophils % (A) 3 %; HCT 42.4 % (34.0-46.0); HGB 14.2 gm/dL (11.4-16.0); Lymphocytes # (A) 1.1 k/uL (1.0-4.8); Lymphocytes % (A) 28 %; MCHC 33.5 g/dL (31.0-37.0); MCV 89.5 fL (80.0-100.0); Monocytes # (A) 0.3 k/uL (0-1.0); Monocytes % (A) 8 %; Neutrophils # (A) 2.2 k/uL (1.3-7.7); Neutrophils % (A) 60 %; Platelet Count 149 k/uL (150-450); RBC 4.74 m/uL (3.80-5.40); RDW 12.6 % (11.5-15.5); WBC 3.8 k/uL (3.8-10.6)
[2020-07-26 11:10] LABS: Appearance,Urine Clear (Clear); Bilirubin,Urine Negative (Negative); Blood,Urine Negative (Negative); Color,Urine Light Yellow; Glucose,Urine (UA) Negative (Negative); Ketones,Urine Negative (Negative); Leukocyte Esterase,Urine Negative (Negative); Nitrite,Urine Negative (Negative); PH, Urine 7.5 (5.0-8.0); Protein,Urine Negative (Negative); Specific Gravity,Urine 1.003 (1.001-1.035); Urobilinogen,Urine <2.0 mg/dL (<2.0)
[2020-07-26 11:15] LABS: ALT 19 U/L (4-34); AST 27 U/L (14-36); African American GFR (CKD) >90 (>60 ml/min/1.73 sqM); Albumin 4.4 g/dL (3.5-5.0); Alkaline Phosphatase 79 U/L (38-126); Anion Gap 5 mmol/L; Blood Urea Nitrogen 10 mg/dL (7-17); Calcium 9.7 mg/dL (8.4-10.2); Carbon Dioxide 28 mmol/L (22-30); Chloride 107 mmol/L (98-107); Creatine Kinase 97 U/L (30-135); Glucose 99 mg/dL (74-99); Magnesium 2.2 mg/dL (1.6-2.3); Non-African American GFR(CKD) 79 (>60 ml/min/1.73 sqM); Sodium 140 mmol/L (137-145); Total Bilirubin 1.3 mg/dL (0.2-1.3); Total Protein 6.7 g/dL (6.3-8.2)
--- NOTE | 2020-07-26 11:42 | XR ---
EXAMINATION TYPE: XR chest 2V DATE OF EXAM: 07/26/2020 COMPARISON: 04/05/16 HISTORY: Shortness of breath TECHNIQUE: Frontal and lateral views of the chest are obtained. FINDINGS: Scattered senescent parenchymal changes noted. Hyperinflation compatible with COPD. No evidence for infiltrate. No evidence for atelectasis. Heart size is stable. Mediastinal structures are stable and grossly unremarkable. No evidence for hilar prominence. Degenerative changes dorsal spine. IMPRESSION: 1. No evidence for acute pulmonary disease.
[2020-07-26 11:57] LABS: D-Dimer <0.17 mg/L FEU (<0.60); INR 1.1 (<1.2); Prothrombin Time 11.5 sec (9.0-12.0)
[2020-07-26 12:42] VITALS: BP 128/70; PULSE 59; TEMP 97.4
== END 2020-07-26 12:42 | disposition home or self-care (01) ==
LOC: EC 09:51
DX: G20 Parkinson's disease (principal); Z71.1 Person with feared health complaint in whom no diagnosis is made; R00.1 Bradycardia, unspecified; R53.1 Weakness; J34.89 Other specified disorders of nose and nasal sinuses; R42 Dizziness and giddiness; R53.83 Other fatigue; E78.5 Hyperlipidemia, unspecified; I10 Essential (primary) hypertension; M06.9 Rheumatoid arthritis, unspecified; Z79.899 Other long term (current) drug therapy; Z88.8 Allergy status to other drugs, medicaments and biological substances
CPT/HCPCS: 36415; 71046; 80053; 81003; 82550; 83605; 83735; 84443; 84484; 85025; 85379; 85610; 85730; 93005; 96360; 96361; 99285

== ENCOUNTER → 2020-12-07 | Outpatient (CLI) | payer MEDICARE ==
--- NOTE | 2020-12-07 10:44 | XR ---
EXAMINATION TYPE: XR lumbosacral spine min 4V DATE OF EXAM: 12/07/2020 CLINICAL HISTORY: Lumbago. Pain into left hip. TECHNIQUE: Frontal, lateral, and oblique images of the lumbar spine are obtained. COMPARISON: CT abdomen and pelvis February 17, 2020 FINDINGS: There are 5 lumbar type vertebral bodies redemonstrated. The lumbar spine shows redemonst rates slight retrolisthesis L2 on L3 and to a lesser degree L3 on L4. There is redemonstration of mil d to moderate disc space narrowing and spurring at L2-L3 level. There is redemonstration of moderate to severe disc space narrowing with vacuum disc phenomenon at L5-S1 level. Vertebral body heights are maintained. Additional mild multilevel anterior spurring is present. Oblique images are within dallin l limits. Partial visualization of known large gallstone seen on some of the images saved. IMPRESSION: As above
== END | disposition home or self-care (01) ==
LOC: RADXRYALE 09:50
PROVIDERS: ATTEND Physician Assistant Medical
DX: M99.73 Connective tissue and disc stenosis of intervertebral foramina of lumbar region (principal); M43.16 Spondylolisthesis, lumbar region
CPT/HCPCS: 72110

== ENCOUNTER 2021-03-23 15:36 | Emergency (ER) | payer MEDICARE ==
[2021-03-23] MEDS ORDERED: SODIUM CHLORIDE 0.9% 1,000 ML IV STA (15:47)
[2021-03-23] MEDS ORDERED: SODIUM CHLORIDE 0.9% 500 ML 500 ML IV STA (15:47)
--- NOTE | 2021-03-23 15:52 | ED ---
General Adult HPI - General Chief complaint: Syncope Stated complaint: syncope Time Seen by Provider: 03/23/21 15:36 Source: patient, RN notes reviewed, old records reviewed Mode of arrival: EMS Limitations: no limitations - History of Present Illness Initial comments: This is a 75-year-old female history of A. fib hypertension rheumatoid arthritis is brought in by EMS from a family gathering where she apparently had a syncopal episode. She was helped out of the floor was all associated no idea that she was going to pass out she denied any headache dizziness blurry vision nausea vomiting no palpitations no chest pain. She apparently was down for approximately 2 minutes before she started to regain consciousness. Upon arrival she was found be awake and alert. She denies any headaches or other symptoms at this time. She has no prior history of syncope. She apparently did recently have a medication adjusted the patient herself is a poor historian and does not recall which medication. Blood glucose was adequate per paramedics. No other complaints or modifying factors at this time - Related Data Home Medications Medication Instructions Recorded Confirmed Atorvastatin [Lipitor] 80 mg PO DAILY 02/02/17 03/23/21 Cyanocobalamin (Vitamin B-12) 1,000 mcg PO DAILY 02/02/17 03/23/21 [Vitamin B-12] Folic Acid 1 mg PO DAILY 02/02/17 03/23/21 Losartan Potassium [Cozaar] 25 mg PO DAILY 02/02/17 03/23/21 [place]-3 Fatty Acids/Fish Oil [Fish 1 cap PO DAILY 02/02/17 03/23/21 Oil 1,000 mg Softgel] Flecainide [Tambocor] 50 mg PO BID 07/26/20 03/23/21 Metoprolol Succinate (ER) [Toprol 25 mg PO DAILY 07/26/20 03/23/21 Xl] Apixaban [Eliquis] 5 mg PO BID 03/23/21 03/23/21 Aspirin EC [Ecotrin Low Dose] 81 mg PO DAILY 03/23/21 03/23/21 Donepezil HCl [Aricept] 10 mg PO HS 03/23/21 03/23/21 rOPINIRole HCL [rOPINIRole HCL ER] 6 mg PO DAILY 03/23/21 03/23/21 Allergies Allergy/AdvReac Type Severity Reaction Status Date / Time hydroxychloroquine sulfate AdvReac Itching Verified 03/23/21 16:40 [From Plaquenil] Review of Systems ROS Statement: Those systems with pertinent positive or pertinent negative responses have been documented in the HPI. ROS Other: All systems not noted in ROS Statement are negative. Past Medical History Past Medical History: Hyperlipidemia, Hypertension, Rheumatoid Arthritis (RA) Additional Past Medical History / Comment(s): Parkinsons History of Any Multi-Drug Resistant Organisms: None Reported Past Surgical History: Section Additional Past Surgical History / Comment(s): cataract eye surgery Past Psychological History: No Psychological Hx Reported Smoking Status: Never smoker Past Alcohol Use History: None Reported Past Drug Use History: None Reported General Exam - General Exam Comments Initial Comments: This is a well-developed well-nourished awake alert oriented 3 female Limitations: no limitations General appearance: alert, in no apparent distress Head exam: Present: atraumatic, normocephalic, normal inspection Eye exam: Present: normal appearance, PERRL, EOMI. Absent: scleral icterus, conjunctival injection, periorbital swelling ENT exam: Present: mucous membranes dry Neck exam: Present: normal inspection, full ROM, other (No stridor JVD or bruits). Absent: tenderness, meningismus, lymphadenopathy Respiratory exam: Present: normal lung sounds bilaterally. Absent: respiratory distress, wheezes, rales, rhonchi, stridor Cardiovascular Exam: Present: regular rate, normal rhythm, normal heart sounds. Absent: systolic murmur, diastolic murmur, rubs, gallop, clicks GI/Abdominal exam: Present: soft, normal bowel sounds. Absent: distended, tenderness, guarding, rebound, rigid, bruit, pulsatile mass Extremities exam: Present: normal inspection, full ROM, normal capillary refill. Absent: tenderness, pedal edema, joint swelling, calf tenderness Back exam: Present: normal inspection Neurological exam: Present: alert, oriented X3, CN II-XII intact Psychiatric exam: Present: normal affect, normal mood Skin exam: Present: warm, dry, intact, normal color. Absent: rash Course Vital Signs 03/23/21 16:46 Pulse Rate 57 L Respiratory 18 Rate Blood Pressure 172/80 O2 Sat by Pulse 98 Oximetry - Reevaluation(s) Reevaluation #1: 03/23/21 16:06 The patient daughter did arrive and I did discuss the findings with her she apparently seemed like her eyes were open the whole time the episode happened the patient denies any memory of the events. She was helped down to the chair that she said in by her grandsons. Patient apparently been very active about 2 baseball game today as well as a cookout that was in progress. When she had no symptoms other than the one at this occurred. EKG Findings - EKG Results: EKG: interpreted by A[place]IN, sinus rhythm (Sinus bradycardia 56. Interval 174 QRS duration 86 QT/QTC 450/434 nonspecific inferior configuration) Medical Decision Making - Medical Decision Making Reassessment patient reveals no further symptoms at this time I did discuss findings with her and her daughter as well as with Denise Roach covering DrJose zamora the patient will be admitted with cardiology consultation. - Lab Data Result diagrams: 03/23/21 16:01 03/23/21 16:01 Lab Results 03/23/21 03/23/21 03/23/21 Range/Units 16:01 16:01 16:01 WBC 3.8 (3.8-10.6) k/uL RBC 4.45 (3.80-5.40) m/uL Hgb 14.1 (11.4-16.0) gm/dL Hct 41.4 (34.0-46.0) % MCV 92.8 (80.0-100.0) fL MCH 31.6 (25.0-35.0) pg MCHC 34.0 (31.0-37.0) g/dL RDW 12.4 (11.5-15.5) % Plt Count 162 (150-450) k/uL MPV 6.8 Neutrophils % 59 % Lymphocytes % 24 % Monocytes % 8 % Eosinophils % 7 % Basophils % 1 % Neutrophils # 2.2 (1.3-7.7) k/uL Lymphocytes # 0.9 L (1.0-4.8) k/uL Monocytes # 0.3 (0-1.0) k/uL Eosinophils # 0.3 (0-0.7) k/uL Basophils # 0.0 (0-0.2) k/uL PT 11.5 (9.0-12.0) sec INR 1.1 (<1.2) APTT 23.4 (22.0-30.0) sec D-Dimer <0.17 (<0.60) mg/L FEU Sodium 141 (137-145) mmol/L Potassium 4.2 (3.5-5.1) mmol/L Chloride 109 H (98-107) mmol/L Carbon Dioxide 27 (22-30) mmol/L Anion Gap 5 mmol/L BUN 10 (7-17) mg/dL Creatinine 0.73 (0.52-1.04) mg/dL Est GFR (CKD-EPI)AfAm >90 (>60 ml/min/1.73 sqM) Est GFR (CKD-EPI)NonAf 82 (>60 ml/min/1.73 sqM) Glucose 109 H (74-99) mg/dL Calcium 9.5 (8.4-10.2) mg/dL Magnesium 2.1 (1.6-2.3) mg/dL Total Bilirubin 0.9 (0.2-1.3) mg/dL AST 34 (14-36) U/L ALT 23 (4-34) U/L Alkaline Phosphatase 88 (38-126) U/L Creatine Kinase 66 (30-135) U/L Troponin I (0.000-0.034) ng/mL Total Protein 6.3 (6.3-8.2) g/dL Albumin 4.1 (3.5-5.0) g/dL Urine Color Urine Appearance (Clear) Urine pH (5.0-8.0) Ur Specific [place] (1.001-1.035) Urine Protein (Negative) Urine Glucose (UA) (Negative) Urine Ketones (Negative) Urine Blood (Negative) Urine Nitrite (Negative) Urine Bilirubin (Negative) Urine Urobilinogen (<2.0) mg/dL Ur Leukocyte Esterase (Negative) Urine RBC (0-5) /hpf Urine WBC (0-5) /hpf Ur Squamous Epith Cells (0-4) /hpf Amorphous Sediment (None) /hpf Urine Bacteria (None) /hpf Urine Mucus (None) /hpf 03/23/21 03/23/21 Range/Units 16:01 17:09 WBC (3.8-10.6) k/uL RBC (3.80-5.40) m/uL Hgb (11.4-16.0) gm/dL Hct (34.0-46.0) % MCV (80.0-100.0) fL MCH (25.0-35.0) pg MCHC (31.0-37.0) g/dL RDW (11.5-15.5) % Plt Count (150-450) k/uL MPV Neutrophils % % Lymphocytes % % Monocytes % % Eosinophils % % Basophils % % Neutrophils # (1.3-7.7) k/uL Lymphocytes # (1.0-4.8) k/uL Monocytes # (0-1.0) k/uL Eosinophils # (0-0.7) k/uL Basophils # (0-0.2) k/uL PT (9.0-12.0) sec INR (<1.2) APTT (22.0-30.0) sec D-Dimer (<0.60) mg/L FEU Sodium (137-145) mmol/L Potassium (3.5-5.1) mmol/L Chloride (98-107) mmol/L Carbon Dioxide (22-30) mmol/L Anion Gap mmol/L BUN (7-17) mg/dL Creatinine (0.52-1.04) mg/dL Est GFR (CKD-EPI)AfAm (>60 ml/min/1.73 sqM) Est GFR (CKD-EPI)NonAf (>60 ml/min/1.73 sqM) Glucose (74-99) mg/dL Calcium (8.4-10.2) mg/dL Magnesium (1.6-2.3) mg/dL Total Bilirubin (0.2-1.3) mg/dL AST (14-36) U/L ALT (4-34) U/L Alkaline Phosphatase (38-126) U/L Creatine Kinase (30-135) U/L Troponin I <0.012 (0.000-0.034) ng/mL Total Protein (6.3-8.2) g/dL Albumin (3.5-5.0) g/dL Urine Color Yellow Urine Appearance Cloudy H (Clear) Urine pH 7.5 (5.0-8.0) Ur Specific [place] 1.021 (1.001-1.035) Urine Protein Trace H (Negative) Urine Glucose (UA) Negative (Negative) Urine Ketones Negative (Negative) Urine Blood Negative (Negative) Urine Nitrite Negative (Negative) Urine Bilirubin Negative (Negative) Urine Urobilinogen <2.0 (<2.0) mg/dL Ur Leukocyte Esterase Negative (Negative) Urine RBC 1 (0-5) /hpf Urine WBC 4 (0-5) /hpf Ur Squamous Epith Cells <1 (0-4) /hpf Amorphous Sediment Rare H (None) /hpf Urine Bacteria Rare H (None) /hpf Urine Mucus Rare H (None) /hpf - Radiology Data Radiology results: report reviewed (Imaging reviewed no acute findings), image reviewed Disposition Clinical Impression: Syncope Disposition: ADMITTED IP TO THIS HOSP Condition: Fair Referrals: Lonnie Rehman DO [Primary Care Provider] - 1-2 days
[2021-03-23 16:10] LABS: Basophils % (A) 1 %; Eosinophils # (A) 0.3 k/uL (0-0.7); Eosinophils % (A) 7 %; HCT 41.4 % (34.0-46.0); HGB 14.1 gm/dL (11.4-16.0); Lymphocytes # (A) 0.9 k/uL (1.0-4.8); Lymphocytes % (A) 24 %; MCH 31.6 pg (25.0-35.0); MCV 92.8 fL (80.0-100.0); Mean Platelet Volume 6.8; Monocytes # (A) 0.3 k/uL (0-1.0); Monocytes % (A) 8 %; Neutrophils # (A) 2.2 k/uL (1.3-7.7); Neutrophils % (A) 59 %; Platelet Count 162 k/uL (150-450); RBC 4.45 m/uL (3.80-5.40); RDW 12.4 % (11.5-15.5); WBC 3.8 k/uL (3.8-10.6)
[2021-03-23 16:19] LABS: ALT 23 U/L (4-34); AST 34 U/L (14-36); African American GFR (CKD) >90 (>60 ml/min/1.73 sqM); Albumin 4.1 g/dL (3.5-5.0); Alkaline Phosphatase 88 U/L (38-126); Anion Gap 5 mmol/L; Blood Urea Nitrogen 10 mg/dL (7-17); Calcium 9.5 mg/dL (8.4-10.2); Carbon Dioxide 27 mmol/L (22-30); Chloride 109 mmol/L (98-107); Creatine Kinase 66 U/L (30-135); Glucose 109 mg/dL (74-99); Magnesium 2.1 mg/dL (1.6-2.3); Non-African American GFR(CKD) 82 (>60 ml/min/1.73 sqM); Potassium 4.2 mmol/L (3.5-5.1); Sodium 141 mmol/L (137-145); Total Bilirubin 0.9 mg/dL (0.2-1.3); Total Protein 6.3 g/dL (6.3-8.2)
[2021-03-23 16:22] LABS: D-Dimer <0.17 mg/L FEU (<0.60); INR 1.1 (<1.2); Prothrombin Time 11.5 sec (9.0-12.0)
[2021-03-23 16:23] LABS: Partial Thromboplastin Time 23.4 sec (22.0-30.0)
--- NOTE | 2021-03-23 16:30 | CT ---
EXAMINATION TYPE: CT brain wo con DATE OF EXAM: 03/23/2021 COMPARISON: None HISTORY: Near syncope. CT DLP: 1099.4 mGycm Automated exposure control for dose reduction was used. Images of the brain obtained without contrast. There is some cerebral cortical atrophy. There is no mass effect nor midline shift. There is no sign of intracranial hemorrhage. Calvarium is intact. Skull base is intact. There is normal aeration of th e mastoid sinuses. IMPRESSION: Cerebral atrophy. No acute intracranial abnormality.
--- NOTE | 2021-03-23 16:41 | XR ---
EXAMINATION TYPE: XR chest 2V DATE OF EXAM: 03/23/2021 COMPARISON: 07/26/2020 HISTORY: Syncope TECHNIQUE: FINDINGS: There is no heart failure nor confluent pneumonic infiltrate. Costophrenic angles are clear . There are no hilar masses. Bony thorax is intact. IMPRESSION: No active cardiopulmonary disease. No change.
[2021-03-23 16:46] VITALS: RESP 18
[2021-03-23 17:22] LABS: Amorphous Sediment,Urine Rare /hpf; Appearance,Urine Cloudy (Clear); Bacteria,Urine Rare /hpf; Bilirubin,Urine Negative (Negative); Blood,Urine Negative (Negative); Color,Urine Yellow; Glucose,Urine (UA) Negative (Negative); Ketones,Urine Negative (Negative); Leukocyte Esterase,Urine Negative (Negative); Mucus,Urine Rare /hpf; Nitrite,Urine Negative (Negative); PH, Urine 7.5 (5.0-8.0); Protein,Urine Trace (Negative); RBC,Urine 1 /hpf (0-5); Specific Gravity,Urine 1.021 (1.001-1.035); Squamous Epithelial Cell,Urine <1 /hpf (0-4); Urobilinogen,Urine <2.0 mg/dL (<2.0); WBC,Urine 4 /hpf (0-5)
[2021-03-23] MEDS ORDERED: ACETAMINOPHEN TAB 325 MG TAB PO PRN (17:57)
[2021-03-23] MEDS ORDERED: NALOXONE 0.4 MG/ML 1 ML VIAL IV PRN (17:57)
[2021-03-23] MEDS ORDERED: SODIUM CHLORIDE 0.9% 1,000 ML IV SCH (18:00)
--- NOTE | 2021-03-23 18:42 | ED ---
Medical Decision Making - Medical Decision Making The patient has reconsidered stain in the hospital she feels much improved after IV hydration. After a very long discussion with her and her daughter who was present patient was be discharged and follow up outpatient with her doctor. We did discuss return parameters including increase oral fluids patient does state that it is difficult to eat and drink as she has no taste anymore after development of the Parkinson's disease. - Lab Data Result diagrams: 03/23/21 16:03/23/21 16: Lab Results 03/23/21 03/23/21 03/23/21 Range/Units 16:01 16: 16: WBC 3.8 (3.8-10.6) k/uL RBC 4.45 (3.80-5.40) m/uL Hgb 14.1 (11.4-16.0) gm/dL Hct 41.4 (34.0-46.0) % MCV 92.8 (80.0-100.0) fL MCH 31.6 (25.0-35.0) pg MCHC 34.0 (31.0-37.0) g/dL RDW 12.4 (11.5-15.5) % Plt Count 162 (150-450) k/uL MPV 6.8 Neutrophils % 59 % Lymphocytes % 24 % Monocytes % 8 % Eosinophils % 7 % Basophils % 1 % Neutrophils # 2.2 (1.3-7.7) k/uL Lymphocytes # 0.9 L (1.0-4.8) k/uL Monocytes # 0.3 (0-1.0) k/uL Eosinophils # 0.3 (0-0.7) k/uL Basophils # 0.0 (0-0.2) k/uL PT 11.5 (9.0-12.0) sec INR 1.1 (<1.2) APTT 23.4 (22.0-30.0) sec D-Dimer <0.17 (<0.60) mg/L FEU Sodium 141 (137-145) mmol/L Potassium 4.2 (3.5-5.1) mmol/L Chloride 109 H (98-107) mmol/L Carbon Dioxide 27 (22-30) mmol/L Anion Gap 5 mmol/L BUN 10 (7-17) mg/dL Creatinine 0.73 (0.52-1.04) mg/dL Est GFR (CKD-EPI)AfAm >90 (>60 ml/min/1.73 sqM) Est GFR (CKD-EPI)NonAf 82 (>60 ml/min/1.73 sqM) Glucose 109 H (74-99) mg/dL Calcium 9.5 (8.4-10.2) mg/dL Magnesium 2.1 (1.6-2.3) mg/dL Total Bilirubin 0.9 (0.2-1.3) mg/dL AST 34 (14-36) U/L ALT 23 (4-34) U/L Alkaline Phosphatase 88 (38-126) U/L Creatine Kinase 66 (30-135) U/L Troponin I (0.000-0.034) ng/mL Total Protein 6.3 (6.3-8.2) g/dL Albumin 4.1 (3.5-5.0) g/dL Urine Color Urine Appearance (Clear) Urine pH (5.0-8.0) Ur Specific [place] (1.001-1.035) Urine Protein (Negative) Urine Glucose (UA) (Negative) Urine Ketones (Negative) Urine Blood (Negative) Urine Nitrite (Negative) Urine Bilirubin (Negative) Urine Urobilinogen (<2.0) mg/dL Ur Leukocyte Esterase (Negative) Urine RBC (0-5) /hpf Urine WBC (0-5) /hpf Ur Squamous Epith Cells (0-4) /hpf Amorphous Sediment (None) /hpf Urine Bacteria (None) /hpf Urine Mucus (None) /hpf 03/23/21 03/23/21 Range/Units 16:01 17:09 WBC (3.8-10.6) k/uL RBC (3.80-5.40) m/uL Hgb (11.4-16.0) gm/dL Hct (34.0-46.0) % MCV (80.0-100.0) fL MCH (25.0-35.0) pg MCHC (31.0-37.0) g/dL RDW (11.5-15.5) % Plt Count (150-450) k/uL MPV Neutrophils % % Lymphocytes % % Monocytes % % Eosinophils % % Basophils % % Neutrophils # (1.3-7.7) k/uL Lymphocytes # (1.0-4.8) k/uL Monocytes # (0-1.0) k/uL Eosinophils # (0-0.7) k/uL Basophils # (0-0.2) k/uL PT (9.0-12.0) sec INR (<1.2) APTT (22.0-30.0) sec D-Dimer (<0.60) mg/L FEU Sodium (137-145) mmol/L Potassium (3.5-5.1) mmol/L Chloride (98-107) mmol/L Carbon Dioxide (22-30) mmol/L Anion Gap mmol/L BUN (7-17) mg/dL Creatinine (0.52-1.04) mg/dL Est GFR (CKD-EPI)AfAm (>60 ml/min/1.73 sqM) Est GFR (CKD-EPI)NonAf (>60 ml/min/1.73 sqM) Glucose (74-99) mg/dL Calcium (8.4-10.2) mg/dL Magnesium (1.6-2.3) mg/dL Total Bilirubin (0.2-1.3) mg/dL AST (14-36) U/L ALT (4-34) U/L Alkaline Phosphatase (38-126) U/L Creatine Kinase (30-135) U/L Troponin I <0.012 (0.000-0.034) ng/mL Total Protein (6.3-8.2) g/dL Albumin (3.5-5.0) g/dL Urine Color Yellow Urine Appearance Cloudy H (Clear) Urine pH 7.5 (5.0-8.0) Ur Specific [place] 1.021 (1.001-1.035) Urine Protein Trace H (Negative) Urine Glucose (UA) Negative (Negative) Urine Ketones Negative (Negative) Urine Blood Negative (Negative) Urine Nitrite Negative (Negative) Urine Bilirubin Negative (Negative) Urine Urobilinogen <2.0 (<2.0) mg/dL Ur Leukocyte Esterase Negative (Negative) Urine RBC 1 (0-5) /hpf Urine WBC 4 (0-5) /hpf Ur Squamous Epith Cells <1 (0-4) /hpf Amorphous Sediment Rare H (None) /hpf Urine Bacteria Rare H (None) /hpf Urine Mucus Rare H (None) /hpf Disposition Clinical Impression: Syncope, Near syncope Disposition: HOME SELF-CARE Condition: Stable Is patient prescribed a controlled substance at d/c from ED?: No
[2021-03-23 18:45] VITALS: BP 157/85; PULSE 74; TEMP 98
[2021-03-23] MEDS ORDERED: APIXABAN 5 MG TAB PO SCH (21:00)
[2021-03-23] MEDS ORDERED: DONEPEZIL 10 MG TAB PO SCH (21:00)
[2021-03-23] MEDS ORDERED: FLECAINIDE 50 MG TAB PO SCH (21:00)
[2021-03-24] MEDS ORDERED: FOLIC ACID 1 MG TAB PO SCH (09:00)
[2021-03-24] MEDS ORDERED: METOPROLOL SUCCINATE (ER) 25 MG TAB.ER.24H PO SCH (09:00)
[2021-03-24] MEDS ORDERED: LOSARTAN 25 MG TAB PO SCH (09:00)
[2021-03-24] MEDS ORDERED: NON FORMULARY DRUG (Omega-3 Fatty Acids/Fish Oil [Fish Oil 1,000 Mg Softgel] 1 EACH Capsul PO SCH (09:00)
[2021-03-24] MEDS ORDERED: ATORVASTATIN 80 MG TAB PO SCH (09:00)
[2021-03-24] MEDS ORDERED: ASPIRIN 81 MG PO SCH (09:00)
[2021-03-24] MEDS ORDERED: CYANOCOBALAMIN 500 MCG TAB PO SCH (09:00)
== END 2021-03-23 19:06 | disposition home or self-care (01) ==
LOC: EC 15:36 → 6NMEDSUR 17:57 → UNDOADMOB 17:57 → EC 19:06
DX: R55 Syncope and collapse (principal); E78.5 Hyperlipidemia, unspecified; I10 Essential (primary) hypertension; M06.9 Rheumatoid arthritis, unspecified
CPT/HCPCS: 36415; 70450; 71046; 80053; 81001; 82550; 83735; 84484; 85025; 85379; 85610; 85730; 93005; 96360; 99285

== ENCOUNTER → 2021-03-27 | Outpatient (CLI) | payer MEDICARE ==
--- NOTE | 2021-03-27 10:39 | CT ---
EXAMINATION TYPE: CT sinus wo con DATE OF EXAM: 03/27/2021 COMPARISON: NONE HISTORY: Chronic sinusitis. Facial pain. CT DLP: 660.8 mGycm. Automated Exposure Control for Dose Reduction was Utilized. TECHNIQUE: CT scan of the sinuses is performed without contrast, axial images are obtained, coronal r eformatted images are also reviewed. FINDINGS: The paranasal sinuses including the frontal, ethmoid, sphenoid, and maxillary sinuses bila terally are well-aerated without abnormal opacification or suspicious air-fluid levels. The ostiomea rodney complex is patent bilaterally on coronal image 18. Visualized portion of mastoid air cells show no abnormal opacification. The globes are intact bilate rally. There is mild to moderate diffuse cerebral atrophy and chronic small vessel ischemic change s een in the visualized brain parenchyma. IMPRESSION: The sinuses are clear and the ostiomeatal complex is patent bilaterally.
== END | disposition home or self-care (01) ==
LOC: RADCTMAIN 09:26
PROVIDERS: ATTEND Otolaryngology
DX: J32.9 Chronic sinusitis, unspecified (principal)
CPT/HCPCS: 70486

== ENCOUNTER 2021-04-25 09:12 | Emergency (ER) | payer MEDICARE ==
[2021-04-25 09:23] VITALS: RESP 18
[2021-04-25] MEDS ORDERED: SODIUM CHLORIDE 0.9% 1,000 ML IV STA (10:15)
--- NOTE | 2021-04-25 10:21 | ED ---
Weakness HPI - General Chief complaint: Weakness Stated complaint: parkinson's disease, doesn't feel good Time Seen by Provider: 04/25/21 10:00 Source: patient, family, RN notes reviewed Mode of arrival: wheelchair Limitations: no limitations - History of Present Illness Initial comments: 75-year-old well-appearing white female presents to the emergency room with her and daughter complaining of increased Parkinsonian tremors over the past 3 days along with some weakness and palpitations. Patient denies any chest pain or shortness of breath. No abdominal pain, vomiting or diarrhea. No fevers. Daughter states that this has happened in the past for she's had increasing tremors and Dr. Castellanos increased her ropinirole to 6 mg a day in November of this year. Daughter states that they were told to contact him again if there was an increasing tremors and dose adjustments would be a. Patient also has a history of an irregular heartbeat per the daughter and is on flecainide. Daughter states that the patient was recently here in the hospital with similar symptoms and was treated for clinical dehydration, discharged home feeling signi ficantly better. Patient admits to drinking one or 2 glasses of water a day. Patient is alert and oriented 4, denies any pain at this time. There is no nausea or vomiting at this time. Patient denies hematochezia or hematemesis MD Complaint: generalized weakness -: days(s) (3) Location: generalized Severity scale (1-10): 0 Quality: other (Increasing left-sided Parkinsonian tremors) Consistency: constant Improves with: none Worsens with: none Context: history of similar (Increased Ropinirole dose in November 2020) Associated Symptoms: nausea/vomiting (No vomiting), other (Palpitations history of A. fib) - Related Data Home Medications Medication Instructions Recorded Confirmed Atorvastatin [Lipitor] 80 mg PO DAILY 02/02/17 04/25/21 Cyanocobalamin (Vitamin B-12) 1,000 mcg PO DAILY@1200 02/02/17 04/25/21 [Vitamin B-12] Folic Acid 1 mg PO DAILY@1200 02/02/17 04/25/21 Losartan Potassium [Cozaar] 25 mg PO DAILY 02/02/17 04/25/21 [place]-3 Fatty Acids/Fish Oil [Fish 1 cap PO DAILY@1200 02/02/17 04/25/21 Oil 1,000 mg Softgel] Flecainide [Tambocor] 50 mg PO BID 07/26/20 04/25/21 Metoprolol Succinate (ER) [Toprol 25 mg PO DAILY 07/26/20 04/25/21 Xl] Apixaban [Eliquis] 5 mg PO BID 03/23/21 04/25/21 Aspirin EC [Ecotrin Low Dose] 81 mg PO DAILY@1200 03/23/21 04/25/21 Donepezil HCl [Aricept] 10 mg PO HS 03/23/21 04/25/21 rOPINIRole HCL [rOPINIRole HCL ER] 6 mg PO DAILY 03/23/21 04/25/21 Cholecalciferol [Vitamin D3 (25 25 mcg PO DAILY@1200 04/25/21 04/25/21 Mcg = 1000 Iu)] Melatonin Unknown Dose 1 tab PO HS 04/25/21 04/25/21 Allergies Allergy/AdvReac Type Severity Reaction Status Date / Time hydroxychloroquine sulfate AdvReac Itching Verified 04/25/21 10:57 [From Plaquenil] Review of Systems ROS Statement: Those systems with pertinent positive or pertinent negative responses have been documented in the HPI. ROS Other: All systems not noted in ROS Statement are negative. Past Medical History Past Medical History: Hyperlipidemia, Hypertension, Rheumatoid Arthritis (RA) Additional Past Medical History / Comment(s): Parkinsons History of Any Multi-Drug Resistant Organisms: None Reported Past Surgical History: Section Additional Past Surgical History / Comment(s): cataract eye surgery Past Psychological History: No Psychological Hx Reported Smoking Status: Never smoker Past Alcohol Use History: None Reported Past Drug Use History: None Reported General Exam Limitations: no limitations, physical limitation (Left-sided Parkinsonian tremor) General appearance: alert, in no apparent distress Head exam: Present: atraumatic, normocephalic, normal inspection Eye exam: Present: normal appearance, PERRL, EOMI. Absent: scleral icterus, conjunctival injection, periorbital swelling Pupils: Present: normal accommodation ENT exam: Present: normal exam, normal oropharynx, mucous membranes moist Neck exam: Present: normal inspection, full ROM. Absent: tenderness, meningismus, lymphadenopathy, thyromegaly Respiratory exam: Present: normal lung sounds bilaterally. Absent: respiratory distress, wheezes, rales, rhonchi, stridor, chest wall tenderness, accessory muscle use, decreased breath sounds Cardiovascular Exam: Present: irregular rhythm. Absent: JVD GI/Abdominal exam: Present: soft, normal bowel sounds. Absent: distended, tenderness, guarding, rebound, rigid, mass Extremities exam: Present: normal inspection, full ROM, normal capillary refill. Absent: tenderness, pedal edema, joint swelling, calf tenderness Back exam: Present: normal inspection, full ROM. Absent: tenderness, CVA tenderness (R), CVA tenderness (L), muscle spasm, paraspinal tenderness, vertebral tenderness, rash noted Neurological exam: Present: alert, oriented X3, CN II-XII intact, other (Left- sided resting tremor history of parkinson) Psychiatric exam: Present: normal affect, normal mood Skin exam: Present: warm, dry, intact, normal color. Absent: rash Course Vital Signs 04/25/21 09:17 Temperature 97.8 F Pulse Rate 124 H Respiratory 18 Rate Blood Pressure 152/86 O2 Sat by Pulse 96 Oximetry EKG Findings - EKG Results: EKG shows: atrial fibrillation (Ventricular rate of 104, QRS of 0.86, QTC of 0.454; atrial fibrillation) Medical Decision Making - Medical Decision Making Chest x-ray shows mild cardiomegaly with no change compared to 03/23/2021, no acute pulmonary process. Hemoglobin and hematocrit is stable there is no signs of leukocytosis, electrolytes are within normal limits, troponin is negative at 0.012. Glucose is 111. Patient has a history of Parkinson's and with increasing tremors Dr. Castellanos normally increases her dose. Daughter states that she was going to call the office for dose increase today but thought we could check her for dehydration and increase her dose in the ER today. Patient given a liter of fluid states his symptoms are significantly better. . Patient also has a history of atrial fibrillation and is on flecainide daily. Atrial fibrillation has resolved and she is in sinus rhythm at a rate is 62. This is likely her Parkinson's progressing and will be directed to follow up with her primary care doctor Dr. Castellanos for dose adjustments. Daughter states she is calling the office now. Case discussed with Dr. Jacques. - Lab Data Result diagrams: 04/25/21 10:21 04/25/21 10:21 Lab Results 04/25/21 04/25/2104/25/21 Range/Units 10:21 10:21 10:21 WBC 4.7 (3.8-10.6) k/uL RBC 4.59 (3.80-5.40) m/uL Hgb 14.6 (11.4-16.0) gm/dL Hct 41.9 (34.0-46.0) % MCV 91.4 (80.0-100.0) fL MCH 31.9 (25.0-35.0) pg MCHC 34.9 (31.0-37.0) g/dL RDW 12.0 (11.5-15.5) % Plt Count 167 (150-450) k/uL MPV 6.9 Neutrophils % 73 % Lymphocytes % 17 % Monocytes % 7 % Eosinophils % 2 % Basophils % 0 % Neutrophils # 3.4 (1.3-7.7) k/uL Lymphocytes # 0.8 L (1.0-4.8) k/uL Monocytes # 0.3 (0-1.0) k/uL Eosinophils # 0.1 (0-0.7) k/uL Basophils # 0.0 (0-0.2) k/uL PT 11.5 (9.0-12.0) sec INR 1.1 (<1.2) APTT 24.9 (22.0-30.0) sec Sodium (137-145) mmol/L Potassium (3.5-5.1) mmol/L Chloride (98-107) mmol/L Carbon Dioxide (22-30) mmol/L Anion Gap mmol/L BUN (7-17) mg/dL Creatinine (0.52-1.04) mg/dL Est GFR (CKD-EPI)AfAm (>60 ml/min/1.73 sqM) Est GFR (CKD-EPI)NonAf (>60 ml/min/1.73 sqM) Glucose (74-99) mg/dL Plasma Lactic Acid Jason (0.7-2.0) mmol/L Calcium (8.4-10.2) mg/dL Magnesium (1.6-2.3) mg/dL Total Bilirubin (0.2-1.3) mg/dL AST (14-36) U/L ALT (4-34) U/L Alkaline Phosphatase (38-126) U/L Troponin I (0.000-0.034) ng/mL Total Protein (6.3-8.2) g/dL Albumin (3.5-5.0) g/dL Urine Color Colorless Urine Appearance Clear (Clear) Urine pH 7.5 (5.0-8.0) Ur Specific Dinosaur 1.004 (1.001-1.035) Urine Protein Negative (Negative) Urine Glucose (UA) Negative (Negative) Urine Ketones Negative (Negative) Urine Blood Negative (Negative) Urine Nitrite Negative (Negative) Urine Bilirubin Negative (Negative) Urine Urobilinogen <2.0 (<2.0) mg/dL Ur Leukocyte Esterase Negative (Negative) 04/25/21 04/25/21 04/25/21 Range/Units 10:21 10:21 10:21 WBC (3.8-10.6) k/uL RBC (3.80-5.40) m/uL Hgb (11.4-16.0) gm/dL Hct (34.0-46.0) % MCV (80.0-100.0) fL MCH (25.0-35.0) pg MCHC (31.0-37.0) g/dL RDW (11.5-15.5) % Plt Count (150-450) k/uL MPV Neutrophils % % Lymphocytes % % Monocytes % % Eosinophils % % Basophils % % Neutrophils # (1.3-7.7) k/uL Lymphocytes # (1.0-4.8) k/uL Monocytes # (0-1.0) k/uL Eosinophils # (0-0.7) k/uL Basophils # (0-0.2) k/uL PT (9.0-12.0) sec INR (<1.2) APTT (22.0-30.0) sec Sodium 141 (137-145) mmol/L Potassium 3.9 (3.5-5.1) mmol/L Chloride 110 H (98-107) mmol/L Carbon Dioxide 26 (22-30) mmol/L Anion Gap 5 mmol/L BUN 12 (7-17) mg/dL Creatinine 0.69 (0.52-1.04) mg/dL Est GFR (CKD-EPI)AfAm >90 (>60 ml/min/1.73 sqM) Est GFR (CKD-EPI)NonAf 86 (>60 ml/min/1.73 sqM) Glucose 111 H (74-99) mg/dL Plasma Lactic Acid Jason 1.0 (0.7-2.0) mmol/L Calcium 9.8 (8.4-10.2) mg/dL Magnesium 2.0 (1.6-2.3) mg/dL Total Bilirubin 1.3 (0.2-1.3) mg/dL AST 33 (14-36) U/L ALT 25 (4-34) U/L Alkaline Phosphatase 101 (38-126) U/L Troponin I <0.012 (0.000-0.034) ng/mL Total Protein 6.7 (6.3-8.2) g/dL Albumin 4.5 (3.5-5.0) g/dL Urine Color Urine Appearance (Clear) Urine pH (5.0-8.0) Ur Specific Dinosaur (1.001-1.035) Urine Protein (Negative) Urine Glucose (UA) (Negative) Urine Ketones (Negative) Urine Blood (Negative) Urine Nitrite (Negative) Urine Bilirubin (Negative) Urine Urobilinogen (<2.0) mg/dL Ur Leukocyte Esterase (Negative) Disposition Clinical Impression: Dehydration, mild Disposition: HOME SELF-CARE Condition: Good Additional Instructions: Follow-up with Dr. Castellanos's office. Increase your fluid intake to 6-8 glasses a day Is patient prescribed a controlled substance at d/c from ED?: No Referrals: Lonnie Rehman DO [Primary Care Provider] - 1-2 days Time of Disposition: 11:43
[2021-04-25 10:41] LABS: Basophils % (A) 0 %; Eosinophils # (A) 0.1 k/uL (0-0.7); Eosinophils % (A) 2 %; HCT 41.9 % (34.0-46.0); HGB 14.6 gm/dL (11.4-16.0); Lymphocytes # (A) 0.8 k/uL (1.0-4.8); Lymphocytes % (A) 17 %; MCH 31.9 pg (25.0-35.0); MCHC 34.9 g/dL (31.0-37.0); MCV 91.4 fL (80.0-100.0); Mean Platelet Volume 6.9; Monocytes # (A) 0.3 k/uL (0-1.0); Monocytes % (A) 7 %; Neutrophils # (A) 3.4 k/uL (1.3-7.7); Neutrophils % (A) 73 %; Platelet Count 167 k/uL (150-450); RBC 4.59 m/uL (3.80-5.40); WBC 4.7 k/uL (3.8-10.6)
[2021-04-25 10:49] LABS: Appearance,Urine Clear (Clear); Bilirubin,Urine Negative (Negative); Blood,Urine Negative (Negative); Color,Urine Colorless; Glucose,Urine (UA) Negative (Negative); Ketones,Urine Negative (Negative); Leukocyte Esterase,Urine Negative (Negative); Nitrite,Urine Negative (Negative); PH, Urine 7.5 (5.0-8.0); Protein,Urine Negative (Negative); Specific Gravity,Urine 1.004 (1.001-1.035); Urobilinogen,Urine <2.0 mg/dL (<2.0)
[2021-04-25 10:53] LABS: ALT 25 U/L (4-34); AST 33 U/L (14-36); African American GFR (CKD) >90 (>60 ml/min/1.73 sqM); Albumin 4.5 g/dL (3.5-5.0); Alkaline Phosphatase 101 U/L (38-126); Anion Gap 5 mmol/L; Blood Urea Nitrogen 12 mg/dL (7-17); Calcium 9.8 mg/dL (8.4-10.2); Carbon Dioxide 26 mmol/L (22-30); Chloride 110 mmol/L (98-107); Glucose 111 mg/dL (74-99); Non-African American GFR(CKD) 86 (>60 ml/min/1.73 sqM); Potassium 3.9 mmol/L (3.5-5.1); Sodium 141 mmol/L (137-145); Total Bilirubin 1.3 mg/dL (0.2-1.3); Total Protein 6.7 g/dL (6.3-8.2)
[2021-04-25 10:56] LABS: INR 1.1 (<1.2); Partial Thromboplastin Time 24.9 sec (22.0-30.0); Prothrombin Time 11.5 sec (9.0-12.0)
--- NOTE | 2021-04-25 11:17 | XR ---
EXAMINATION TYPE: XR chest 2V DATE OF EXAM: 04/25/2021 COMPARISON: Prior chest x-ray March 23, 2021 HISTORY: History of Parkinson's disease disease with worsening weakness. TECHNIQUE: Frontal and lateral views of the chest are obtained. FINDINGS: There is no new suspicious focal air space opacity, pleural effusion, or pneumothorax seen . The cardiac silhouette size is stable and mildly enlarged. Overlying EKG leads are redemonstrated. The osseous structures are intact. IMPRESSION: Mild Cardiomegaly without acute pulmonary process. No significant change from prior.
[2021-04-25 11:43] VITALS: BP 133/73; PULSE 66; TEMP 98.1
== END 2021-04-25 12:35 | disposition home or self-care (01) ==
LOC: EC 09:12
DX: E86.0 Dehydration (principal); R00.2 Palpitations; R53.1 Weakness; G20 Parkinson's disease; E78.5 Hyperlipidemia, unspecified; I10 Essential (primary) hypertension; M06.9 Rheumatoid arthritis, unspecified; Z79.82 Long term (current) use of aspirin; Z79.01 Long term (current) use of anticoagulants
CPT/HCPCS: 36415; 71046; 80053; 81003; 83605; 83735; 84484; 85025; 85610; 85730; 93005; 99285

== ENCOUNTER → 2022-03-03 | Outpatient (CLI) | payer MEDICARE ==
--- NOTE | 2022-03-03 17:39 | XR ---
EXAMINATION TYPE: XR shoulder complete RT DATE OF EXAM: 03/03/2022 COMPARISON: None available INDICATION: Right shoulder pain TECHNIQUE: 3 views of the right shoulder FINDINGS: Mild degenerative changes of the acromioclavicular joint. Grossly unremarkable glenohumeral articulat ion. No humeral head dislocation or significant subluxation. No definite acute fracture line identified. No signs of rotator cuff calcific tendinitis. Maintained acromiohumeral distance. IMPRESSION: No definite fracture or dislocation. Mild degenerative changes of the acromioclavicular joint.
== END | disposition home or self-care (01) ==
LOC: RADXRYALE 13:27
PROVIDERS: ATTEND Physician Assistant Medical
DX: M19.011 Primary osteoarthritis, right shoulder (principal)

== ENCOUNTER 2025-05-20 19:43 | Inpatient (IN) | payer MEDICARE ==
--- NOTE | 2025-05-20 19:59 | ED ---
Fall HPI - General Stated Complaint: Fall Time Seen by Provider: 05/20/25 19:49 Source: RN notes reviewed, old records reviewed, Caregiver Mode of arrival: ambulatory Limitations: no limitations, language barrier, altered mental status, physical limitation - History of Present Illness Initial Comments: This is a 79 female presenting with family from extended-care facility with a fall fall with suspected known right hip fracture. Patient has hospice DNR and here for pain control MD Complaint: fall -: hour(s) Fall From: standing When Fall Occurred: 4-6 hours REGULATORY AFFAIRS COORDINATOR Fall Witnessed: no Place Fall Occurred: home Loss of Consciousness: none Prolonged Down Time?: no Symptoms Prior to Fall: none Location - Extremities: Right: Thigh Severity: severe Context: tripped/slipped Associated Symptoms: denies - Related Data Home Medications Medication Instructions Recorded Confirmed Haloperidol Lactate 2mg/Ml 0.25 - 0.5 ml PO Q4H PRN 05/21/25 05/21/25 Concentrate Hyoscyamine Sulfate [Hyoscyamine 0.25 mg SL Q4H PRN 05/21/25 05/21/25 Sulfate SL] LORazepam [Ativan] 0.5 - 1 mg PO Q4H PRN 05/21/25 05/21/25 MORPHINE ORAL BINH CONC 20mg/mL 5 - 20 mg PO Q1H PRN 05/21/25 05/21/25 [Roxanol Oral Soln Conc 20MG/ML] Prochlorperazine Suppository 25 mg RECTAL BID PRN 05/21/25 05/21/25 [Compazine] Allergies Allergy/AdvReac Type Severity Reaction Status Date / Time hydroxychloroquine sulfate AdvReac Itching Verified 05/21/25 13:50 [From Plaquenil] Review of Systems ROS Statement: Those systems with pertinent positive or pertinent negative responses have been documented in the HPI. ROS Other: All systems not noted in ROS Statement are negative. Past Medical History Past Medical History: Hyperlipidemia, Hypertension, Rheumatoid Arthritis (RA) Additional Past Medical History / Comment(s): Parkinsons History of Any Multi-Drug Resistant Organisms: None Reported Past Surgical History: Section Additional Past Surgical History / Comment(s): cataract eye surgery Past Psychological History: No Psychological Hx Reported Smoking Status: Never smoker Past Alcohol Use History: None Reported Past Drug Use History: None Reported General Exam General appearance: alert, in no apparent distress Head exam: Present: atraumatic, normocephalic, normal inspection Eye exam: Present: normal appearance, PERRL, EOMI. Absent: scleral icterus, conjunctival injection, periorbital swelling ENT exam: Present: normal exam, mucous membranes moist Neck exam: Present: normal inspection. Absent: tenderness, meningismus, ly mphadenopathy Respiratory exam: Present: normal lung sounds bilaterally. Absent: respiratory distress, wheezes, rales, rhonchi, stridor Cardiovascular Exam: Present: regular rate, normal rhythm, normal heart sounds. Absent: systolic murmur, diastolic murmur, rubs, gallop, clicks GI/Abdominal exam: Present: soft, normal bowel sounds. Absent: distended, tenderness, guarding, rebound, rigid Extremities exam: Present: normal inspection, full ROM, normal capillary refill. Absent: tenderness, pedal edema, joint swelling, calf tenderness Back exam: Present: normal inspection Neurological exam: Present: alert, oriented X3, CN II-XII intact Psychiatric exam: Present: normal affect, normal mood Skin exam: Present: warm, dry, intact, normal color. Absent: rash Course Vital Signs 05/20/25 05/20/25 05/20/25 19:57 22:07 23:24 Temperature 98.4 F 98.6 F Pulse Rate 82 89 90 Respiratory 16 14 14 Rate Blood Pressure 181/86 143/85 O2 Sat by Pulse 94 L 93 L 93 L Oximetry - Reevaluation(s) Reevaluation #1: 05/20/25 20:21 Medical records reviewed Reevaluation #2: 05/20/25 22:44 Patient's pain is improving here in the ER Reevaluation #3: 05/20/25 22:44 Patient's family is informed of results and questions answered Reevaluation #4: Was pt. sent in by a medical professional or institution (, PA, [facility] [facility], urgent care, hospital, or care home...) When possible be specific @ -no Did you speak to anyone other than the patient for history (EMS, parent, family, police, friend...)? What history was obtained from this source @ -no Did you review nursing and triage notes (agree or disagree)? Why? @ -agree Are old charts reviewed (outside hosp., previous admission, EMS record, old EKG, old radiological studies, urgent care reports/EKG's, care home records)? Report findings @ -yes Differential Diagnosis (chest pain, altered mental status, abdominal pain women, abdominal pain men, vaginal bleeding, weakness, fever, dyspnea, syncope, headache, dizziness, GI bleed, back pain, seizure, CVA, palpatations, mental health, musculoskeletal)? @ -prior EKG interpreted by me (3pts min.). @ -no X-rays interpreted by me (1pt min.). @ -no CT interpreted by me (1pt min.). @ -no U/S interpreted by me (1pt. min.). @ -no What testing was considered but not performed or refused? (CT, X-rays, U/S, lab s)? Why? @ -none What meds were considered but not given or refused? Why? @ -none Did you discuss the management of the patient with other professionals (professionals i.e. , PA, [employer] [facility], lab, RT, psych nurse, social service director, internal medicine nurse, teacher, chief science officer, director of casework services)? Give summary @ -no Was smoking cessation discussed for >3mins.? @ -no Was critical care preformed (if so, how long)? @ -no Were there social determinants of health that impacted care today? How? (Homelessness, low income, unemployed, alcoholism, drug addiction, transportation, low edu. Level, literacy, decrease access to med. care, usp, rehab)? @ -none Was there de-escalation of care discussed even if they declined (Discuss DNR or withdrawal of care, Hospice)? DNR status @ -no What co-morbidities impacted this encounter? (DM, HTN, Smoking, COPD, CAD, Cancer, CVA, ARF, Chemo, Hep., AIDS, mental health diagnosis, sleep apnea, morbid obesity)? @ -none Was patient admitted / discharged? Hospital course, mention meds given and route, prescriptions, significant lab abnormalities, going to OR and other pertinent info. @ - 79 female to the ER for evaluation, patient had a fall today and is uncontrolled and intractable pain in the right hip, hip is fractured on examination patient will be admitted for pain control patient is a hospice care patient [facility] hosp[facility] and then unable to control patient's pain Admitted for fall, hip fracture, pain control, hospice Undiagnosed new problem with uncertain prognosis? @ -no Drug Therapy requiring intensive monitoring for toxicity (Heparin, Nitro, Insulin, Cardizem)? @ -no Were any procedures done? @ -no Diagnosis/symptom? @ - Acute, or Chronic, or Acute on Chronic? @ -Acute Uncomplicated (without systemic symptoms) or Complicated (systemic symptoms)? @ -Complicated Side effects of treatment? @ -no Exacerbation, Progression, or Severe Exacerbation? @ -exacerbation Poses a threat to life or bodily function? How? (Chest pain, [place], [place], pneumonia, PE, COPD, DKA, ARF, appy, cholecystitis, CVA, Diverticulitis, Homicidal, Suicidal, threat to staff... and all critical care pts) @ -yes extremes of age - Consultations Consultation #1: Spoke with [facility] who agreed to admit this patient Medical Decision Making - Medical Decision Making 79 female to the ER for evaluation, patient had a fall today and is uncontrolled and intractable pain in the right hip, hip is fractured on examination patient will be admitted for pain control patient is a hospice care patient [facility] and then unable to control patient's pain - Lab Data Result diagrams: 05/20/25 20:17 05/20/25 20:17 Lab Results 05/20/25 05/20/25 05/20/25 Range/Units 20:09 20:17 20:17 WBC 7.05 (4.50-10.00) 10*3/uL RBC 4.26 (4.10-5.20) 10*6/uL Hgb 13.4 (12.0-15.0) g/dL Hct 38.5 (37.2-46.3) % MCV 90.4 (80.0-97.0) fL MCH 31.5 (27.0-32.0) pg MCHC 34.8 (32.0-37.0) g/dL Plt Count 122 L (140-440) 10*3/uL MPV 11.2 (9.5-12.2) fL Immature Gran % (Auto) 0.6 % Neutrophils % 88.6 % Lymphocytes % 4.4 % Monocytes % 6.2 % Eosinophils % 0.1 % Basophils % 0.1 % Immature Gran # 0.04 (0.00-0.04) 10*3/uL Neutrophils # 6.24 (1.80-7.70) 10*3/uL Lymphocytes # 0.31 L (0.90-5.00) 10*3/uL Monocytes # 0.44 (0.20-1.00) 10*3/uL Eosinophils # 0.01 L (0.04-0.35) 10*3/uL Basophils # 0.01 (0.00-0.10) 10*3/uL Immature Plt Fraction 2.0 (1.1-6.1) % Sodium 139 (137-145) mmol/L Potassium 3.4 L (3.5-5.1) mmol/L Chloride 108 H (98-107) mmol/L Carbon Dioxide 22 (22-30) mmol/L Anion Gap 9 mmol/L BUN 12 (7-17) mg/dL Creatinine 0.68 (0.52-1.04) mg/dL Est GFR (CKD-EPI)AfAm >90 (>60 ml/min/1.73 sqM) Est GFR (CKD-EPI)NonAf 84 (>60 ml/min/1.73 sqM) Glucose 143 H (74-99) mg/dL Calcium 9.3 (8.4-10.2) mg/dL Phosphorus 2.5 (2.5-4.5) mg/dL Magnesium 1.8 (1.6-2.3) mg/dL Total Bilirubin 1.8 H (0.2-1.3) mg/dL AST 19 (14-36) U/L ALT 6 (4-34) U/L Alkaline Phosphatase 108 (38-126) U/L Total Protein 6.4 (6.3-8.2) g/dL Albumin 4.2 (3.5-5.0) g/dL Urine Color Light Red Urine Appearance Cloudy H (Clear) Urine pH 6.5 (5.0-8.0) Ur Specific [place] 1.025 (1.001-1.035) Urine Protein 1+ H (Negative) Urine Glucose (UA) Negative (Negative) Urine Ketones 1+ H (Negative) Urine Blood Large H (Negative) Urine Nitrite Negative (Negative) Urine Bilirubin Negative (Negative) Urine Urobilinogen 2.0 (<2.0) mg/dL Ur Leukocyte Esterase Negative (Negative) Urine RBC >182 H (0-5) /hpf Urine WBC 4 (0-5) /hpf Ur Squamous Epith Cells 1 (0-4) /hpf Calcium Oxalate Crystal Few H (None) /hpf Triple Phos Crystals Rare H (None) /hpf Hyaline Casts 3 H (0-2) /lpf Urine Mucus Occasional H (None) /hpf Disposition Clinical Impression: Fall, Closed right hip fracture, Pain, Hospice care patient Disposition: ADMITTED IP TO THIS HOSP Condition: Poor Is patient prescribed a controlled substance at d/c from ED?: No Time of Disposition: 23:00
[2025-05-20] MEDS: HYDROmorphone 1 MG/ML 1 ML SYRINGE IVP STA (20:23)
[2025-05-20] MEDS: ONDANSETRON 4 MG/2 ML VIAL IVP STA (20:23)
[2025-05-20] MEDS: SODIUM CHLORIDE 0.9% 1,000 ML IV ONE (20:24)
[2025-05-20 20:36] LABS: Basophils # (A) 0.01 10*3/uL (0.00-0.10); Basophils % (A) 0.1 %; Eosinophils # (A) 0.01 10*3/uL (0.04-0.35); Eosinophils % (A) 0.1 %; HCT 38.5 % (37.2-46.3); HGB 13.4 g/dL (12.0-15.0); Lymphocytes # (A) 0.31 10*3/uL (0.90-5.00); Lymphocytes % (A) 4.4 %; MCH 31.5 pg (27.0-32.0); MCHC 34.8 g/dL (32.0-37.0); MCV 90.4 fL (80.0-97.0); Mean Platelet Volume 11.2 fL (9.5-12.2); Monocytes # (A) 0.44 10*3/uL (0.20-1.00); Monocytes % (A) 6.2 %; Neutrophils # (A) 6.24 10*3/uL (1.80-7.70); Neutrophils % (A) 88.6 %; Platelet Count 122 10*3/uL (140-440); RBC 4.26 10*6/uL (4.10-5.20); RDW 12.9 % (11.5-14.5); WBC 7.05 10*3/uL (4.50-10.00)
[2025-05-20 21:31] LABS: African American GFR (CKD) >90 (>60 ml/min/1.73 sqM); Anion Gap 9 mmol/L; Blood Urea Nitrogen 12 mg/dL (7-17); Calcium 9.3 mg/dL (8.4-10.2); Carbon Dioxide 22 mmol/L (22-30); Chloride 108 mmol/L (98-107); Glucose 143 mg/dL (74-99); Magnesium 1.8 mg/dL (1.6-2.3); Non-African American GFR(CKD) 84 (>60 ml/min/1.73 sqM); Phosphorus 2.5 mg/dL (2.5-4.5); Potassium 3.4 mmol/L (3.5-5.1); Sodium 139 mmol/L (137-145); Total Protein 6.4 g/dL (6.3-8.2)
[2025-05-20 21:32] LABS: ALT 6 U/L (4-34); AST 19 U/L (14-36); Albumin 4.2 g/dL (3.5-5.0); Alkaline Phosphatase 108 U/L (38-126); Total Bilirubin 1.8 mg/dL (0.2-1.3)
[2025-05-20 21:58] LABS: Appearance,Urine Cloudy (Clear); Bilirubin,Urine Negative (Negative); Blood,Urine Large (Negative); Calcium Oxalate Crystals,Urine Few /hpf; Color,Urine Light Red; Glucose,Urine (UA) Negative (Negative); Hyaline Casts,Urine 3 /lpf (0-2); Ketones,Urine 1+ (Negative); Leukocyte Esterase,Urine Negative (Negative); Mucus,Urine Occasional /hpf; Nitrite,Urine Negative (Negative); PH, Urine 6.5 (5.0-8.0); Protein,Urine 1+ (Negative); RBC,Urine >182 /hpf (0-5); Specific Gravity,Urine 1.025 (1.001-1.035); Squamous Epithelial Cell,Urine 1 /hpf (0-4); Triple Phosphate Crystal,Urine Rare /hpf; WBC,Urine 4 /hpf (0-5)
[2025-05-20] MEDS ORDERED: NALOXONE 0.4 MG/ML 1 ML VIAL IV PRN (22:39)
[2025-05-20] MEDS ORDERED: ONDANSETRON 4 MG/2 ML VIAL IVP PRN (22:41)
[2025-05-20] MEDS ORDERED: LORazepam 2 MG/ML INJ IV PRN (22:41)
[2025-05-20] MEDS: POTASSIUM CHLORIDE 20 MEQ in WATER FOR INJECTION 1 100ML.BAG IVPB STA (23:23)
[2025-05-20] MEDS: DEXTROSE 5%-0.45% NACL 1,000 ML IV SCH (23:24)
[2025-05-21] MEDS: KETOROLAC 15 MG/ML 1 ML VIAL IVP PRN (00:23)
[2025-05-21] MEDS: HYDROmorphone 1 MG/ML 1 ML SYRINGE IVP PRN ×2 (00:24→22:39)
--- NOTE | 2025-05-21 17:06 | P.HPIM ---
History of Present Illness H&P Date: 05/21/25 History of present illness; patient is a 79-year-old lady with past medical history significant for hypertension, hyperlipidemia, Parkinson disease who presented to the ER from hospice home for right hip pain. Patient family at the bedside, patient is lethargic and unable to participate in any review of system or HPI. According to patient's daughter at the bedside patient was enrolled in hospice with [facility], patient apparently had a fall yesterday. Following that patient was having severe pain and was unable to bear any weight on the right leg. Hospice team discussed with patient's family and the plan was patient pain to be controlled and later transferred to hospice house. Discussi on took place with patient's daughter and at this time they do not want any imaging and would rather focus on patient end-of-life care. Patient admitted to internal medicine service REVIEW OF SYSTEMS: Review of system cannot be obtained as patient is lethargic PHYSICAL EXAMINATION: GENERAL: The patient is lethargic HEENT: Pupils are round and equally reacting to light. EOMI. No scleral icterus. No conjunctival pallor. Normocephalic, atraumatic. No pharyngeal erythema. No thyromegaly. CARDIOVASCULAR: S1 and S2 present. No murmurs, rubs, or gallops. PULMONARY: Chest is clear to auscultation, no wheezing or crackles. ABDOMEN: Soft, nontender, nondistended, normoactive bowel sounds. No palpable organomegaly. MUSCULOSKELETAL: Right leg externally rotated EXTREMITIES: No cyanosis, clubbing, or pedal edema. NEUROLOGICAL: Lethargic, moving all extremities SKIN: No rashes. Assessment and plan Intractable hip pain Fall History of parkinsonism History of hypertension Monitor vital signs Continue pain management with as needed Dilaudid Continue antiemetics Hospice consulted, possible discharge to hospice facility Labs and medication were reviewed.. Continue same treatment. Continue with symptomatic treatment. Resume home medication. Monitor labs and vitals. DVT and GI prophylaxis. Further recommendations as per clinical course of the patient Dictation was produced using Koding dictation software. please excuse any grammatical, word or spelling errors. Past Medical History Past Medical History: Hyperlipidemia, Hypertension, Rheumatoid Arthritis (RA) Additional Past Medical History / Comment(s): Parkinsons History of Any Multi-Drug Resistant Organisms: None Reported Past Surgical History: Section Additional Past Surgical History / Comment(s): cataract eye surgery Past Psychological History: No Psychological Hx Reported Smoking Status: Unknown if ever smoked Past Alcohol Use History: None Reported Past Drug Use History: None Reported Medications and Allergies Home Medications Medication Instructions Recorded Confirmed Type Haloperidol Lactate 2mg/Ml 0.25 - 0.5 ml PO Q4H PRN 05/21/25 05/21/25 History Concentrate Hyoscyamine Sulfate [Hyoscyamine 0.25 mg SL Q4H PRN 05/21/25 05/21/25 History Sulfate SL] LORazepam [Ativan] 0.5 - 1 mg PO Q4H PRN 05/21/25 05/21/25 History MORPHINE ORAL BINH CONC 20mg/mL 5 - 20 mg PO Q1H PRN 05/21/25 05/21/25 History [Roxanol Oral Soln Conc 20MG/ML] Prochlorperazine Suppository 25 mg RECTAL BID PRN 05/21/25 05/21/25 History [Compazine] Allergies Allergy/AdvReac Type Severity Reaction Status Date / Time hydroxychloroquine sulfate AdvReac Itching Verified 05/21/25 13:50 [From Plaquenil] Physical Exam Vitals: Vital Signs Temp Pulse Pulse Resp BP BP Pulse Ox 05/21/25 09:52 16 05/21/25 07:50 16 05/21/25 07:46 98.8 F 89 17 116/70 94 L 05/21/25 01:49 98.6 F 94 18 164/99 94 L 05/20/25 23:24 98.6 F 90 14 143/85 93 L 05/20/25 22:07 89 14 93 L 05/20/25 19:57 98.4 F 82 16 181/86 94 L Intake and Output 05/20/25 05/21/25 05/21/25 22:59 06:59 14:59 Output Total 200 Balance -200 Output: Urine 200 Other: Weight 72.575 kg Results CBC & Chem 7: 05/20/25 20:17 05/20/25 20:17 Labs: Abnormal Lab Results - Last 24 Hours (Table) 05/20/25 05/20/25 05/20/25 Range/Units 20:09 20:17 20:17 Plt Count 122 L (140-440) 10*3/uL Lymphocytes # 0.31 L (0.90-5.00) 10*3/uL Eosinophils # 0.01 L (0.04-0.35) 10*3/uL Potassium 3.4 L (3.5-5.1) mmol/L Chloride 108 H (98-107) mmol/L Glucose 143 H (74-99) mg/dL Total Bilirubin 1.8 H (0.2-1.3) mg/dL Urine Appearance Cloudy H (Clear) Urine Protein 1+ H (Negative) Urine Ketones 1+ H (Negative) Urine Blood Large H (Negative) Urine RBC >182 H (0-5) /hpf Calcium Oxalate Crystal Few H (None) /hpf Triple Phos Crystals Rare H (None) /hpf Hyaline Casts 3 H (0-2) /lpf Urine Mucus Occasional H (None) /hpf
[2025-05-21 20:49] VITALS: BP 102/67; PULSE 83; RESP 17; TEMP 99.1
[2025-05-21] MEDS: LORazepam 1 MG/0.5 ML VIAL IV PRN (21:34)
--- NOTE | 2025-05-25 02:02 | P.DS ---
Providers Date of admission: 05/20/25 22:39 Expected date of discharge: 05/21/25 Attending physician: Jade Navarrete Primary care physician: Scott [facility] Course: Final diagnosis Intractable hip pain Fall History of parkinsonism History of hypertension No code Discharge disposition Patient is being discharged in a stable condition with guarded prognosis to [facility] . Total time taken is greater than 35 minutes. Hospital course History of present illness; patient is a 79-year-old lady with past medical history significant for hypertension, hyperlipidemia, Parkinson disease who presented to the ER from hospice home for right hip pain. Patient family at the bedside, patient is lethargic and unable to participate in any review of system or HPI. According to patient's daughter at the bedside patient was enrolled in hospice with [facility], patient apparently had a fall yesterday. Following that patient was having severe pain and was unable to bear any weight on the right leg. Hospice team discussed with patient's family and the plan was patient pain to be controlled and later transferred to [facility] house. Discussion took place with patient's daughter and at this time they do not want any imaging and would rather focus on patient end-of-life care. Patient admitted to internal medicine service Patient will be going to [facility] this evening. PHYSICAL EXAMINATION: GENERAL: The patient is lethargic HEENT: Pupils are round and equally reacting to light. EOMI. No scleral icterus. No conjunctival pallor. Normocephalic, atraumatic. No pharyngeal erythema. No thyromegaly. CARDIOVASCULAR: S1 and S2 present. No murmurs, rubs, or gallops. PULMONARY: Chest is clear to auscultation, no wheezing or crackles. ABDOMEN: Soft, nontender, nondistended, normoactive bowel sounds. No palpable organomegaly. MUSCULOSKELETAL: Right leg externally rotated EXTREMITIES: No cyanosis, clubbing, or pedal edema. NEUROLOGICAL: Lethargic, moving all extremities SKIN: No rashes. Please refer to medication reconciliation sheet for a list of medications. The impression and plan of care has been dictated by Denise Tellez, Nurse Practitioner as directed. Dr. Jeff Maxwell MD I have performed a history and examination and MDM of this patient, discussed the same with the dictator, and agree with the dictator's assessment and plan as written ,documented as a scribe. Based on total visit time, I have performed more than 50% of the visit. Patient Condition at Discharge: Poor Plan - Discharge Summary New Discharge Prescriptions: No Action Hyoscyamine Sulfate [Hyoscyamine Sulfate SL] 0.25 mg SL Q4H PRN PRN Reason: Gi Upset LORazepam [Ativan] 0.5 - 1 mg PO Q4H PRN PRN Reason: Anxiety Haloperidol Lactate 2mg/Ml Concentrate 0.25 - 0.5 ml PO Q4H PRN PRN Reason: Nausea And Vomiting Prochlorperazine Suppository [Compazine] 25 mg RECTAL BID PRN PRN Reason: Constipation MORPHINE ORAL BINH CONC 20mg/mL [Roxanol Oral Soln Conc 20MG/ML] 5 - 20 mg PO Q1H PRN PRN Reason: Pain/Shortness of breath Discharge Medication List Haloperidol Lactate 2mg/Ml Concentrate 0.25 - 0.5 ml PO Q4H PRN 05/21/25 [History] Hyoscyamine Sulfate [Hyoscyamine Sulfate SL] 0.25 mg SL Q4H PRN 05/21/25 [History] LORazepam [Ativan] 0.5 - 1 mg PO Q4H PRN 05/21/25 [History] MORPHINE ORAL BINH CONC 20mg/mL [Roxanol Oral Soln Conc 20MG/ML] 5 - 20 mg PO Q1H PRN 05/21/25 [History] Prochlorperazine Suppository [Compazine] 25 mg RECTAL BID PRN 05/21/25 [History] Follow up Appointment(s)/Referral(s): Hospice,[facility] [REFERRING] - None,Stated [REFERRING] - 1-2 days Patient Instructions/Handouts: Hospice (DC) Discharge Disposition: STILL PT- FOR INTERIM BILLING
== END 2025-05-22 01:46 | disposition hospice, inpatient (51) | DRG 536 ==
LOC: EC 19:43 → 4SSUR 22:39
PROVIDERS: ADMIT Hospitalist; ATTEND Hospitalist
DX: S72.001A Fracture of unspecified part of neck of right femur, initial encounter for closed fracture (principal); Z51.5 Encounter for palliative care; Z66 Do not resuscitate; G20.A1 Parkinson's disease without dyskinesia, without mention of fluctuations; I10 Essential (primary) hypertension; W18.30XA Fall on same level, unspecified, initial encounter; Z79.82 Long term (current) use of aspirin; Z79.01 Long term (current) use of anticoagulants; Z79.899 Other long term (current) drug therapy
CPT/HCPCS: 36415; 80053; 81001; 83735; 84100; 85025; 96365; 96375; 99285